=== PATIENT | male | born 1940 | race Caucasian/White ===

== ENCOUNTER 2017-07-23 21:01 | Inpatient (IN) | payer MEDICARE, OTHER ==
[~2017-07-23] VITALS: Ht 172.7 cm; Wt 74.4 kg
[~2017-07-23 21:01] MED LIST: ASPI81TA50 PO; IRON PO; LISI40TA PO; METO-239 PO; MULT1CAP15 PO; NAPR500T4 PO; OMEG-33 PO; PRAV40TA2 PO; TERA2CAP3 PO; VITAMIN B PO
[2017-07-23] MEDS ORDERED: ASPIRIN ENTERIC COATED 81 MG TABLET.DR. PO ONE (21:30)
--- NOTE | 2017-07-23 21:34 | PHYS DOC ---
Past History Past Medical History: CAD, Hypertension, Other Past Surgical History: Coronary Bypass Surgery, Other Alcohol Use: None Drug Use: None Adult General Chief Complaint Chief Complaint: MULTIPLE COMPLAINTS HPI HPI Patient is a 77 year old male who presents with complaint of chest pain and shortness of breath. Patient states that shortly prior to arrival the patient experienced a fall while at home. Patient states that he lost his balance while he was trying to climb stairs and fell onto his rear end. Patient denies falling to his back or hitting the back of his head and did not lose consciousness. Patient not currently on any blood thinners. Patient states that as he attempted to exert himself trying to get back up the steps, he started getting very short of breath and started feeling pressure across his chest. Patient states that the pressure is still present on my evaluation rated his pain as 5 out of 10. Patient has not taken any medications for his symptoms at this time. The patient has extensive history of coronary artery disease and has had multiple stent placements as well as history of cardiac bypass surgery. Patient follows a Dr. Burrell of cardiology. The patient states that he has not had any recent stress test or echocardiogram within the last 1-2 years. Review of Systems Review of Systems Constitutional: Denies fever or chills [] Eyes: Denies change in visual acuity, redness, or eye pain [] HENT: Denies nasal congestion or sore throat [] Respiratory: Shortness of breath[] Cardiovascular: Chest pain, denies edema[] GI: Denies abdominal pain, nausea, vomiting, bloody stools or diarrhea [] : Denies dysuria or hematuria [] Musculoskeletal: Denies back pain or joint pain [] Integument: Denies rash or skin lesions [] Neurologic: Headache, denies focal weakness or sensory changes [] All other systems were reviewed and found to be within normal limits, except as documented in this note. Current Medications Current Medications Current Medications Medications (Trade) Dose Ordered Sig/Pedro Start Time Stop Time Status Last Admin Dose Admin Aspirin (Aspirin Enteric Coated) 81 mg STK-MED ONCE 07/23/17 21:30 07/23/17 21:31 DC Aspirin (Children'S Aspirin) 324 mg 1X ONCE 07/23/17 22:00 07/23/17 22:01 Fentanyl Citrate (Fentanyl 2ml Vial) 50 mcg PRN Q15MIN PRN 07/23/17 21:30 07/24/17 21:29 Nitroglycerin (Nitrostat) 0.4 mg PRN Q5MIN PRN 07/23/17 21:30 07/24/17 21:29 Ondansetron HCl (Zofran) 4 mg 1X ONCE 07/23/17 21:30 07/23/17 21:31 UNV Sodium Chloride 1,000 ml @ 100 mls/hr Q10H 07/23/17 21:24 07/24/17 07:23 UNV Allergies Allergies Allergies Coded Allergies Type Severity Reaction Last Updated Verified No Known Drug Allergies 12/15/15 No Physical Exam Physical Exam Constitutional: Alert, afebrile, appears in mild to moderate discomfort[] HENT: Normocephalic, atraumatic, bilateral external ears normal, oropharynx moist, no oral exudates, nose normal. [] Eyes: PERRLA, EOMI, conjunctiva normal, no discharge. [] Neck: Normal range of motion, no tenderness, supple, no stridor. [] Cardiovascular:Heart rate regular rhythm, no murmur [] Lungs & Thorax: Bilateral breath sounds clear to auscultation [] Abdomen: Bowel sounds normal, soft, no tenderness, no masses, no pulsatile masses. [] Skin: Warm, dry, no erythema, no rash. [] Back: No tenderness, no CVA tenderness. [] Extremities: No tenderness, no cyanosis, no clubbing, ROM intact, no edema. [] Neurologic: Alert and oriented X 3, normal motor function, normal sensory function, no focal deficits noted. [] Current Patient Data Vital Signs Vital Signs Date Time Temp Pulse Resp B/P (MAP) Pulse Ox O2 Delivery O2 Flow Rate FiO2 07/23/17 21:01 98.2 65 26 98 Room Air EKG EKG EKG interpreted by me: Heart rate 64, sinus rhythm, leftward axis, no acute ST/T -wave abnormalities present[] Radiology/Procedures Radiology/Procedures One view AP chest x-ray interpreted by me: Pulmonary vascular congestion, atelectasis versus edema in the bilateral lower lobes, normal cardiac silhouette [] Course & Med Decision Making Course & Med Decision Making Pertinent Labs and Imaging studies reviewed. (See chart for details) The patient was started on nitroglycerin, fentanyl, and Zofran for symptoms with reported improvement. Initial troponin is negative. The patient's HEART score is 6. Patient will require admission to the hospital for rule out of myocardial infarction. I spoke with Dr. Galvan who accepted care patient in hospital. A consult was placed to Dr. Gutierrez to follow with patient in hospital. Dragon Disclaimer Dragon Disclaimer This electronic medical record was generated, in whole or in part, using a voice recognition dictation system. Departure Departure: Impression: Primary Impression: Chest pain Additional Impressions: Coronary artery disease Hypertension Disposition: 09 ADMITTED INPATIENT Admitting Physician: Claudia Galvan Condition: GUARDED Referrals: ASHLEY CASTRO DO (PCP) Problem Qualifiers Primary Impression: Chest pain Chest pain type: unspecified Qualified Codes: R07.9 - Chest pain, unspecified Additional Impressions: Coronary artery disease Coronary Disease-Associated Artery/Lesion type: [place] artery [place] vs. transplanted heart: [place] heart Associated angina: with unstable angina Qualified Codes: I25.110 - Atherosclerotic heart disease of [place] coronary artery with unstable angina pectoris Hypertension Hypertension type: essential hypertension Qualified Codes: I10 - Essential ( primary) hypertension BELEM SORENSON MD Jul 23, 2017 21:34
[2017-07-23 21:36] LABS: BASO % 0 % (0-3); EOS # 0.1 x10^3/uL (0.0-0.7); EOS % 2 % (0-3); HEMATOCRIT 38.6 % (39.0-53.0); HEMOGLOBIN 13.2 g/dL (13.0-17.5); LYMPH # 1.2 x10^3/uL (1.0-4.8); LYMPH % 20 % (24-48); MEAN CORPUSCULAR HEMOGLOBIN 31 pg (25-35); MEAN CORPUSCULAR HGB CONC 34 g/dL (31-37); MEAN CORPUSCULAR VOLUME 89 fL (79-100); MONO # 0.4 x10^3/uL (0.0-1.1); MONO % 8 % (0-9); NEUT # 4.1 x10^3uL (1.8-7.7); NEUT % 70 % (31-73); PLATELET COUNT 130 x10^3/uL (140-400); RED BLOOD COUNT 4.33 x10^6/uL (4.30-5.70); RED CELL DISTRIBUTION WIDTH 13.7 % (11.5-14.5); WHITE BLOOD COUNT 5.9 x10^3/uL (4.0-11.0)
[2017-07-23] MEDS: NITROGLYCERIN SUBLINGUAL 0.4 MG BOTTLE OF 25. SL PRN ×2 (21:38→22:01)
[2017-07-23 21:58] LABS: ALBUMIN 3.6 g/dL (3.4-5.0); CALCIUM 8.8 mg/dL (8.5-10.1); CREATININE 1.3 mg/dL (0.7-1.3); GFR 53.3; MAGNESIUM 1.9 mg/dL (1.8-2.4); POTASSIUM 3.9 mmol/L (3.5-5.1); TOTAL BILIRUBIN 0.6 mg/dL (0.2-1.0); TOTAL PROTEIN 7.3 g/dL (6.4-8.2)
[2017-07-23] MEDS ORDERED: ONDANSETRON PF 4 MG/2 ML VIAL. IV ONE (22:00)
[2017-07-23] MEDS ORDERED: ASPIRIN 81 MG TAB.CHEW PO ONE (22:00)
[2017-07-23] MEDS ORDERED: IV NORMAL SALINE 1,000ML 1,000 ML IV SCH (22:00)
[2017-07-23] MEDS ORDERED: ACETAMINOPHEN 325 MG TABLET PO PRN (22:30)
[2017-07-23] MEDS ORDERED: ONDANSETRON PF 4 MG/2 ML VIAL. IV PRN (22:30)
[2017-07-23 22:32] VITALS: BP 165/98
[2017-07-23 23:43] VITALS: BP 180/68
[2017-07-24] MEDS ORDERED: ANTI-COAG MONITOR BY PHARMACY. MC PRN (01:00)
--- NOTE | 2017-07-24 01:28 | EKG ---
[address] [address] Test Date: 2017-07-23 Test Time: 21:15:04 Pat Name: TYSON BRYAN Department: Room: 123 A Gender: M Police Guard: DORETHA : 1940 Requested By: BELEM SORENSON Order Number: [id number] Reading MD: Sincere Haile MD Measurements Intervals [place] Rate: 64 P: [place]: QRS: 10 QRSD: 90 T: 65 QT: 400 QTc: 412 Interpretive Statements SINUS RHYTHM Electronically Signed On 07-24-2017 10:30:59 BRIQUETTING MACHINE OPERATOR by Sincere Haile MD
[2017-07-24] MEDS: ENOXAPARIN ** NOTE DOSE ** SYRINGE SQ SCH ×3 (01:34→21:39)
[2017-07-24 02:42] VITALS: BP 175/75
[2017-07-24 05:47] VITALS: BP 160/62
[2017-07-24 07:02] LABS: BASO % 0 % (0-3); EOS % 0 % (0-3); HEMATOCRIT 33.6 % (39.0-53.0); HEMOGLOBIN 11.8 g/dL (13.0-17.5); LYMPH # 0.8 x10^3/uL (1.0-4.8); LYMPH % 13 % (24-48); MEAN CORPUSCULAR HEMOGLOBIN 31 pg (25-35); MEAN CORPUSCULAR HGB CONC 35 g/dL (31-37); MEAN CORPUSCULAR VOLUME 89 fL (79-100); MONO # 0.4 x10^3/uL (0.0-1.1); MONO % 7 % (0-9); NEUT # 5.1 x10^3uL (1.8-7.7); NEUT % 80 % (31-73); PLATELET COUNT 110 x10^3/uL (140-400); RED BLOOD COUNT 3.77 x10^6/uL (4.30-5.70); RED CELL DISTRIBUTION WIDTH 13.7 % (11.5-14.5); WHITE BLOOD COUNT 6.4 x10^3/uL (4.0-11.0)
[2017-07-24 07:11] LABS: CALCIUM 8.3 mg/dL (8.5-10.1); CREATININE 1.3 mg/dL (0.7-1.3); GFR 53.3; POTASSIUM 3.7 mmol/L (3.5-5.1)
--- NOTE | 2017-07-24 07:36 | RAD ---
Portable chest, 07/23/2017: History: Chest pain Comparison is made to a study from 12/15/2015. There has been a previous median sternotomy. A coronary artery stent is evident. The heart is at the upper limits of normal in size. There is calcific plaquing of the aorta. The pulmonary vascularity is normal. There is minimal streaky atelectasis or scarring in the right base. No dense pulmonary consolidation is seen. There is no evidence of pleural fluid. IMPRESSION: 1. Borderline cardiomegaly and aortic atherosclerosis. 2. Minimal right basilar atelectasis and/or scarring.
[2017-07-24] MEDS ORDERED: METOPROLOL SUCC 24HR ER 25 MG TAB.ER.24H. PO SCH (09:00)
[2017-07-24] MEDS ORDERED: NAPROXEN 500 MG TABLET PO SCH (09:00)
--- NOTE | 2017-07-24 09:33 | PDOC2 ---
SARA LOPEZ SUPERINTENDENT SERVICE 07/24/17 0933: CONSULT Date of Admission DATE: 07/24/17 TIME: 09:22 Reason for Consult: chest pain Problem List Problems Medical Problems: (1) Chest pain Status: Acute (2) Coronary artery disease Status: Acute (3) Hypertension Status: Acute History of Present Illness Mr Gaxiola is a 77 year old male with history of severe coronary artery disease with CABG and redo CABG. His last cardiac cath was last year and revealed patent stents and vein grafts so he was continued on medical therapy. He reports coming in yesterday and feeling lightheaded "like being drunk" and having difficulty maintaining his balance. He lost balance and fell in the basement. He reports he then became short of breath and had to crawl up the steps. He reports some chest discomfort by the time he go to the top of the stairs. He reports this is the first time he has had symptoms since his cath last year. He reports normally being able to climb the stairs without symptoms and believes he could walk "as far as I need to" without problems. He denies any palpitations or syncope. He denies congestive symptoms. Past Medical History Echo 12/15/15 The left ventricle is normal size. Left ventricle systolic function is normal. The Ejection Fraction is 55-60%. There is borderline to mild concentric left ventricular hypertrophy. There is no significant aortic valvular stenosis. Doppler and Color Flow revealed mild aortic regurgitation. Doppler and Color Flow revealed trace to mild mitral regurgitation. Doppler and Color Flow revealed trace tricuspid regurgitation. The PA pressure was estimated at 20 mmHg. Cardiac Cath 12/17/15 CORONARY ANGIOGRAPHY: LM is small and diffusely diseased. LAD is proximally occluded. The mid and distal vessel is small in size and fills via a patent vein graft. D1 is proximall occluded. The distal vessel fills via a skip graft from the LAD graft and is small in caliber. The distal vessel prior to graft anastomosis has a subtotal occlusion. LCx is proximally occluded. OM1 is ostially occluded and fills via jump graft from the LAD/D1 graft. RCA is a small to moderate sized vessel with a long diffuse 50-60% stenosis ( unchanged from 2 yrs ago). RPDA/RPL fill via a patent vein graft. BYPASS ANGIOGRAPHY: SVG to RPL1/2 is widely patent without anastomotic stenosis. SVG jump graft to LAD, D1 and OM1 is widely patent without anastomotic stenosis. Prior OM1 graft occluded with previously placed stents CHANEY graft is known occluded and not injected. OM1 Conclusion 1. Mildly elevated left ventricular filling pressure. 2. Normal LV systolic function. EF 65% 3. Severe three vessel coronary artery disease. 4. 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 HTN HLD prostate cancer Past Surgical History CABG twice Family History non contributory Social History non smoker, no significant ETOH, no illicit drugs Current Medications Current Medications Aspirin (Children'S Aspirin) 324 mg 1X ONCE PO Last administered on 21:46; Start 07/23/17 at 22:00; Stop 07/23/17 at 22:01; Status DC Nitroglycerin (Nitrostat) 0.4 mg PRN Q5MIN PRN SL CP RATING > 1/10 Last administered on 07/23/17 22:01; Start 07/23/17 at 21:30; Stop 07/24/17 at 21 :29 Fentanyl Citrate (Fentanyl 2ml Vial) 50 mcg PRN Q15MIN PRN IV PAIN GREATER THAN 3/10 Last administered on 07/23/17 21:56; Start 07/23/17 at 21:30; Stop 07/24/17 at 21:29 Sodium Chloride 1,000 ml @ 100 mls/hr Q10H IV Last administered on 07/23/17 21:39; Start 07/23/17 at 22:00; Stop 07/24/17 at 00:52; Status DC Ondansetron HCl (Zofran) 4 mg 1X ONCE IV Last administered on 07/23/17 21:37 ; Start 07/23/17 at 22:00; Stop 07/23/17 at 22:01; Status DC Aspirin (Aspirin Enteric Coated) 81 mg STK-MED ONCE PO ; Start 07/23/17 at 21: 30; Stop 07/23/17 at 21:31; Status DC Ondansetron HCl (Zofran) 4 mg PRN Q4HRS PRN IV NAUSEA/VOMITING; Start at 22:30; Stop 07/24/17 at 22:29 Fentanyl Citrate (Fentanyl 2ml Vial) 50 mcg PRN Q2HR PRN IV SEVERE PAIN; Start 07/23/17 at 22:30; Stop 07/24/17 at 22:29 Acetaminophen (Tylenol) 650 mg PRN Q4HRS PRN PO FEVER; Start 07/23/17 at 22:30 ; Stop 07/24/17 at 22:29 Aspirin (Aspirin Enteric Coated) 81 mg DAILY PO ; Start 07/24/17 at 09:00 Metoprolol Succinate (Toprol Xl) 12.5 mg BID PO ; Start 07/24/17 at 09:00 Naproxen (Naprosyn) 500 mg BID PO ; Start 07/24/17 at 09:00 Lisinopril (Prinivil) 40 mg DAILY PO ; Start 07/24/17 at 09:00 Multivitamins/ Calcium (Thera-M Plus) 1 tab DAILY PO ; Start 07/24/17 at 09:00 Fish Oil (Fish Oil) 2,000 mg DAILY PO ; Start 07/24/17 at 09:00 Atorvastatin Calcium (Lipitor) 40 mg QHS PO ; Start 07/24/17 at 21:00 Terazosin HCl (Hytrin) 2 mg QHS PO ; Start 07/24/17 at 21:00 Ferrous Sulfate (Feosol) 325 mg DAILYWBKFT PO ; Start 07/24/17 at 08:00 Cyanocobalamin (Vitamin B-12) 2,500 mcg DAILY PO ; Start 07/24/17 at 09:00 Enoxaparin Sodium (Lovenox 80mg Syringe) 70 mg Q12HR SQ Last administered on t 01:34; Start 07/24/17 at 01:00 Info (Anti-Coagulation Monitoring By Pharmacy) 1 each PRN DAILY PRN MC SEE COMMENTS; Start 07/24/17 at 01:00 Active Scripts Active Reported Multivitamins (Multivitamin) 1 Each Capsule 1 Each PO DAILY LAST DOSE GIVEN: DATE: TIME: NEXT DOSE DUE: DATE: TIME: [Vitamin B] 2,500 Mg PO DAILY LAST DOSE GIVEN: DATE: TIME: NEXT DOSE DUE: DATE: TIME: [Iron] 65 Mg PO DAILY LAST DOSE GIVEN: DATE: TIME: NEXT DOSE DUE: DATE: TIME: [place] 3 1,000 Mg Softgel ([place]-3 Fatty Acids/Fish Oil) 1 Each Capsule 2 Each PO DAILY LAST DOSE GIVEN: DATE: TIME: NEXT DOSE DUE: DATE: TIME: Aspir-Low (Aspirin) 81 Mg Tablet.dr 1 Tab PO DAILY LAST DOSE GIVEN: DATE: TIME: NEXT DOSE DUE: DATE: TIME: Naproxen 500 Mg Tablet 500 Mg PO BID LAST DOSE GIVEN: DATE: TIME: NEXT DOSE DUE: DATE: TIME: Terazosin Hcl 2 Mg Capsule 2 Mg PO QHS LAST DOSE GIVEN: DATE: TIME: NEXT DOSE DUE: DATE: TIME: Metoprolol Succinate ( Xl ) (Metoprolol Succinate) 25 Mg Tab.er.24h 12.5 Mg PO BID LAST DOSE GIVEN: DATE: TIME: NEXT DOSE DUE: DATE: TIME: Lisinopril 40 Mg Tablet 40 Mg PO DAILY LAST DOSE GIVEN: DATE: TIME: NEXT DOSE DUE: DATE: TIME: Pravastatin Sodium 40 Mg Tablet 80 Mg PO BID LAST DOSE GIVEN: DATE: TIME: NEXT DOSE DUE: DATE: TIME: Allergies: Coded Allergies: No Known Drug Allergies (Unverified , 12/15/15) Review of System as per HPI or negative General: Alert, Oriented X3, Cooperative, No acute distress HEENT: Atraumatic, EOMI Lungs: Clear to auscultation Heart: Regular rate, Normal S1, Normal S2, Other (no gallops, clicks or rubs) Abdomen: Normal bowel sounds, Soft Extremities: No cyanosis, No edema, Normal pulses Neuro: Normal speech, Strength at 5/5 X4 ext Psych/Mental Status: Mental status NL, Mood NL VITALS Vital Signs Date Time Temp Pulse Resp B/P (MAP) Pulse Ox O2 Delivery O2 Flow Rate FiO2 07/24/17 05:47 99.1 64 16 160/62 (94) 93 Room Air 07/24/17 02:42 2.0 Labs Laboratory Tests Test 07/23/17 21:10 07/24/17 00:10 07/24/17 06:17 White Blood Count 5.9 x10^3/uL (4.0-11.0) 6.4 x10^3/uL (4.0-11.0) Red Blood Count 4.33 x10^6/uL (4.30-5.70) 3.77 x10^6/uL (4.30-5.70) Hemoglobin 13.2 g/dL (13.0-17.5) 11.8 g/dL (13.0-17.5) Hematocrit 38.6 % (39.0-53.0) 33.6 % (39.0-53.0) Mean Corpuscular Volume 89 fL (79-100) 89 fL (79-100) Mean Corpuscular Hemoglobin 31 pg (25-35) 31 pg (25-35) Mean Corpuscular Hemoglobin Concent 34 g/dL (31-37) 35 g/dL (31-37) Red Cell Distribution Width 13.7 % (11.5-14.5) 13.7 % (11.5-14.5) Platelet Count 130 x10^3/uL (140-400) 110 x10^3/uL (140-400) Neutrophils (%) (Auto) 70 % (31-73) 80 % (31-73) Lymphocytes (%) (Auto) 20 % (24-48) 13 % (24-48) Monocytes (%) (Auto) 8 % (0-9) 7 % (0-9) Eosinophils (%) (Auto) 2 % (0-3) 0 % (0-3) Basophils (%) (Auto) 0 % (0-3) 0 % (0-3) Neutrophils # (Auto) 4.1 x10^3uL (1.8-7.7) 5.1 x10^3uL (1.8-7.7) Lymphocytes # (Auto) 1.2 x10^3/uL (1.0-4.8) 0.8 x10^3/uL (1.0-4.8) Monocytes # (Auto) 0.4 x10^3/uL (0.0-1.1) 0.4 x10^3/uL (0.0-1.1) Eosinophils # (Auto) 0.1 x10^3/uL (0.0-0.7) 0.0 x10^3/uL (0.0-0.7) Basophils # (Auto) 0.0 x10^3/uL (0.0-0.2) 0.0 x10^3/uL (0.0-0.2) Sodium Level 139 mmol/L (136-145) 138 mmol/L (136-145) Potassium Level 3.9 mmol/L (3.5-5.1) 3.7 mmol/L (3.5-5.1) Chloride Level 103 mmol/L (98-107) 104 mmol/L (98-107) Carbon Dioxide Level 28 mmol/L (21-32) 28 mmol/L (21-32) Anion Gap 8 (6-14) 6 (6-14) Blood Urea Nitrogen 15 mg/dL (8-26) 14 mg/dL (8-26) Creatinine 1.3 mg/dL (0.7-1.3) 1.3 mg/dL (0.7-1.3) Estimated GFR (Cockcroft-Gault) 53.3 53.3 BUN/Creatinine Ratio 12 (6-20) Glucose Level 104 mg/dL (70-99) 102 mg/dL (70-99) Calcium Level 8.8 mg/dL (8.5-10.1) 8.3 mg/dL (8.5-10.1) Magnesium Level 1.9 mg/dL (1.8-2.4) Total Bilirubin 0.6 mg/dL (0.2-1.0) Aspartate Amino Transf (AST/SGOT) 28 U/L (15-37) Alanine Aminotransferase (ALT/SGPT) 31 U/L (16-63) Alkaline Phosphatase 98 U/L (46-116) Creatine Kinase 226 U/L (39-308) Creatine Kinase MB (Mass) 3.0 ng/mL (0.0-3.6) Creatine Kinase MB Relative Index 1.3 % (0-4) Troponin I Quantitative < 0.017 ng/mL (0-0.055) 0.059 ng/mL (0-0.055) 0.066 ng/mL (0-0.055) OS-Rcj-V-Type Natriuretic Peptide 1262 pg/mL (0-449) Total Protein 7.3 g/dL (6.4-8.2) Albumin 3.6 g/dL (3.4-5.0) Albumin/Globulin Ratio 1.0 (1.0-1.7) Images EKG - sinus rhythm, no acute ischemic changes CXR IMPRESSION: 1. Borderline cardiomegaly and aortic atherosclerosis. 2. Minimal right basilar atelectasis and/or scarring. Assessment/Plan 1. Chest pain, exertional 2. mildly elevated troponin 3. Severe 3 vessel CAD with redo bypass 4. hypertension 5. hyperlipidemia Check echo, start Ranexa, continue aspirin, statin and resume other home medications. Check lipids. Problems: RIZWANA KELLEY MD 07/24/17 1502: CONSULT Allergies: Coded Allergies: No Known Drug Allergies (Unverified , 12/15/15) Assessment/Plan Pt. seen and examined. Agree with above BRASS MOLDER note. 77 y.o male with known CAD presenting with near syncope. Mild trop elevation, no prior symptoms of angina. Check echo, carotid doppler and stop toprol. Likely event monitor prior to DC. Trend trop until it downtrends. Problems: SARA LOPEZ APRN Jul 24, 2017 09:33 RIZWANA KELLEY MD Jul 24, 2017 15:02
--- NOTE | 2017-07-24 09:41 | EKG ---
[address] [address] Test Date: 2017-07-24 Test Time: 08:00:50 Pat Name: TYSON BRYAN Department: Room: 123 A Gender: M Studio Engineer: : 1940 Requested By: SAIRA SINGH Order Number: [id number] Reading MD: Sincere Haile MD Measurements Intervals [place] Rate: 62 P: 26 RI: 174 QRS: -12 QRSD: 90 T: 73 QT: 430 QTc: 439 Interpretive Statements SINUS RHYTHM Electronically Signed On 07-24-2017 10:32:47 POLYSOMNOGRAPHY TECHNICIAN by Sincere Haile MD
[2017-07-24] MEDS ORDERED: RANOLAZINE 500 MG TAB.ER.12H PO SCH (10:30)
[2017-07-24] MEDS: CYANOCOBALAMIN (VITAMIN B-12) 1,000 MCG TABLET. PO SCH (10:32)
[2017-07-24] MEDS: OMEGA-3 FATTY ACIDS/FISH OIL 1,000 MG CAPSULE. PO SCH (10:33)
[2017-07-24] MEDS: FERROUS SULFATE 325 MG TABLET. PO SCH (10:34)
[2017-07-24] MEDS: MULTIVITAMIN with MINERAL TABLET. PO SCH (10:34)
[2017-07-24] MEDS: ASPIRIN ENTERIC COATED 81 MG TABLET.DR. PO SCH (10:34)
[2017-07-24] MEDS: LISINOPRIL 20 MG TABLET PO SCH (10:36)
[2017-07-24 10:46] VITALS: BP 142/56
[2017-07-24 14:40] VITALS: BP 148/82
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
[2017-07-24 19:33] VITALS: BP 155/66
[2017-07-24] MEDS ORDERED: TERAZOSIN 1 MG CAPSULE. PO SCH (21:00)
[2017-07-24] MEDS ORDERED: ATORVASTATIN CALCIUM 20 MG TABLET PO SCH (21:00)
[2017-07-24 23:23] VITALS: BP 125/50
[2017-07-25 06:22] VITALS: BP 143/58
--- NOTE | 2017-07-25 07:59 | RAD ---
APPROVED REPORT Indications Syncope Hernandez scale images of the bilateral common carotid, internal and external carotid vessels do not revea l any evidence of significant obstructive plaque. The common carotid velocities bilaterally are decre ased likely due to suboptimal angled inclination and technical difficulty. Nonetheless, the internal carotid artery velocities suggestive 0 to less than 50% stenosis. The distal internal carotid artery appears to be tortuous and likely leading to elevated ICA to CCA ratios. No obvious high-grade diseas e is identified. Doppler Spectral Velocity Analysis Right Left mCCA 38/ cm/smCCA 59/ cm/s ECA 91/ cm/sECA 65/ cm/s pICA 55/9 cm/spICA 72/6 cm/s Anabel 63/12 cm/smICA 74/7 cm/s dICA 111/18 cm/sdICA 66/13 cm/s ICA/CCA 2.92ICA/CCA 1.30 Critical Notification Critical Value: No <Conclusion> No evidence of high-grade carotid arterial stenosis. Antegrade vertebral velocities.
[2017-07-25] MEDS: OMEGA-3 FATTY ACIDS/FISH OIL 1,000 MG CAPSULE. PO SCH (08:37)
[2017-07-25] MEDS: CYANOCOBALAMIN (VITAMIN B-12) 1,000 MCG TABLET. PO SCH (08:37)
[2017-07-25] MEDS: LISINOPRIL 20 MG TABLET PO SCH (08:37)
[2017-07-25] MEDS: MULTIVITAMIN with MINERAL TABLET. PO SCH (08:38)
[2017-07-25] MEDS: FERROUS SULFATE 325 MG TABLET. PO SCH (08:38)
[2017-07-25] MEDS: ASPIRIN ENTERIC COATED 81 MG TABLET.DR. PO SCH (08:38)
[2017-07-25] MEDS: ENOXAPARIN ** NOTE DOSE ** SYRINGE SQ SCH (08:42)
--- NOTE | 2017-07-25 10:11 | PDOC ---
PROGRESS NOTES Diagnosis Problem Problems Medical Problems: (1) Chest pain Status: Acute (2) Coronary artery disease Status: Acute (3) Hypertension Status: Acute Assessment Problems Medical Problems: (1) Chest pain Status: Acute (2) Coronary artery disease Status: Acute (3) Hypertension Status: Acute 1. Chest pain, exertional - resolved. 2. mildly elevated troponin - peak 0.066. 3. 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 Off beta kian due to bradycardia. 4. bradycardia - event monitor outpatient 5. hypertension - controlled 6. hyperlipidemia - controlled on current therapy. Problems: Subjective no chest pain, no dyspnea, "ready to go home" Objective Vital Signs Date Time Temp Pulse Resp B/P (MAP) Pulse Ox O2 Delivery O2 Flow Rate FiO2 07/25/17 08:37 52 143/58 07/25/17 06:22 97.9 16 93 Room Air 07/24/17 19:33 94.0 Intake and Output 07/25/17 07:00 Intake Total 120 ml Output Total 100 ml Balance 20 ml Intake Oral 120 ml Output Urine Total 100 ml # Voids 1 Abdomen: Normal bowel sounds, Soft, No tenderness Heart: Regular rate, Normal S1, Normal S2 Extremities: No cyanosis, Normal pulses General: Alert, Oriented X3, Cooperative Lungs: Clear to auscultation, Normal air movement Neuro: Normal speech, Strength at 5/5 X4 ext Psych/Mental Status: Mental status NL, Mood NL Review of Relevant I have reviewed the following items adria (where applicable) has been applied. Labs Laboratory Tests Test 07/23/17 21:10 07/24/17 00:10 07/24/17 06:17 07/24/17 15:25 White Blood Count 5.9 x10^3/uL (4.0-11.0) 6.4 x10^3/uL (4.0-11.0) Red Blood Count 4.33 x10^6/uL (4.30-5.70) 3.77 x10^6/uL (4.30-5.70) Hemoglobin 13.2 g/dL (13.0-17.5) 11.8 g/dL (13.0-17.5) Hematocrit 38.6 % (39.0-53.0) 33.6 % (39.0-53.0) Mean Corpuscular Volume 89 fL (79-100) 89 fL (79-100) Mean Corpuscular Hemoglobin 31 pg (25-35) 31 pg (25-35) Mean Corpuscular Hemoglobin Concent 34 g/dL (31-37) 35 g/dL (31-37) Red Cell Distribution Width 13.7 % (11.5-14.5) 13.7 % (11.5-14.5) Platelet Count 130 x10^3/uL (140-400) 110 x10^3/uL (140-400) Neutrophils (%) (Auto) 70 % (31-73) 80 % (31-73) Lymphocytes (%) (Auto) 20 % (24-48) 13 % (24-48) Monocytes (%) (Auto) 8 % (0-9) 7 % (0-9) Eosinophils (%) (Auto) 2 % (0-3) 0 % (0-3) Basophils (%) (Auto) 0 % (0-3) 0 % (0-3) Neutrophils # (Auto) 4.1 x10^3uL (1.8-7.7) 5.1 x10^3uL (1.8-7.7) Lymphocytes # (Auto) 1.2 x10^3/uL (1.0-4.8) 0.8 x10^3/uL (1.0-4.8) Monocytes # (Auto) 0.4 x10^3/uL (0.0-1.1) 0.4 x10^3/uL (0.0-1.1) Eosinophils # (Auto) 0.1 x10^3/uL (0.0-0.7) 0.0 x10^3/uL (0.0-0.7) Basophils # (Auto) 0.0 x10^3/uL (0.0-0.2) 0.0 x10^3/uL (0.0-0.2) Sodium Level 139 mmol/L (136-145) 138 mmol/L (136-145) Potassium Level 3.9 mmol/L (3.5-5.1) 3.7 mmol/L (3.5-5.1) Chloride Level 103 mmol/L (98-107) 104 mmol/L (98-107) Carbon Dioxide Level 28 mmol/L (21-32) 28 mmol/L (21-32) Anion Gap 8 (6-14) 6 (6-14) Blood Urea Nitrogen 15 mg/dL (8-26) 14 mg/dL (8-26) Creatinine 1.3 mg/dL (0.7-1.3) 1.3 mg/dL (0.7-1.3) Estimated GFR (Cockcroft-Gault) 53.3 53.3 BUN/Creatinine Ratio 12 (6-20) Glucose Level 104 mg/dL (70-99) 102 mg/dL (70-99) Calcium Level 8.8 mg/dL (8.5-10.1) 8.3 mg/dL (8.5-10.1) Magnesium Level 1.9 mg/dL (1.8-2.4) Total Bilirubin 0.6 mg/dL (0.2-1.0) Aspartate Amino Transf (AST/SGOT) 28 U/L (15-37) Alanine Aminotransferase (ALT/SGPT) 31 U/L (16-63) Alkaline Phosphatase 98 U/L (46-116) Creatine Kinase 226 U/L (39-308) Creatine Kinase MB (Mass) 3.0 ng/mL (0.0-3.6) Creatine Kinase MB Relative Index 1.3 % (0-4) Troponin I Quantitative < 0.017 ng/mL (0-0.055) 0.059 ng/mL (0-0.055) 0.066 ng/mL (0-0.055) 0.035 ng/mL (0-0.055) CV-Yyo-L-Type Natriuretic Peptide 1262 pg/mL (0-449) Total Protein 7.3 g/dL (6.4-8.2) Albumin 3.6 g/dL (3.4-5.0) Albumin/Globulin Ratio 1.0 (1.0-1.7) Triglycerides Level 35 mg/dL (0-150) Cholesterol Level 123 mg/dL (0-200) LDL Cholesterol, Calculated 70 mg/dL (0-100) VLDL Cholesterol, Calculated 7 mg/dL (0-40) Non-HDL Cholesterol Calculated 77 mg/dL (0-129) HDL Cholesterol 46 mg/dL (40-60) Cholesterol/HDL Ratio 2.0 Medications Current Medications Aspirin (Children'S Aspirin) 324 mg 1X ONCE PO Last administered on 21:46; Start 07/23/17 at 22:00; Stop 07/23/17 at 22:01; Status DC Nitroglycerin (Nitrostat) 0.4 mg PRN Q5MIN PRN SL CP RATING > 1/10 Last administered on 07/23/17 22:01; Start 07/23/17 at 21:30; Stop 07/24/17 at 21 :29; Status DC Fentanyl Citrate (Fentanyl 2ml Vial) 50 mcg PRN Q15MIN PRN IV PAIN GREATER THAN 3/10 Last administered on 07/23/17 21:56; Start 07/23/17 at 21:30; Stop 07/24/17 at 21:29; Status DC Sodium Chloride 1,000 ml @ 100 mls/hr Q10H IV Last administered on 07/23/17 21:39; Start 07/23/17 at 22:00; Stop 07/24/17 at 00:52; Status DC Ondansetron HCl (Zofran) 4 mg 1X ONCE IV Last administered on 07/23/17 21:37 ; Start 07/23/17 at 22:00; Stop 07/23/17 at 22:01; Status DC Aspirin (Aspirin Enteric Coated) 81 mg STK-MED ONCE PO ; Start 07/23/17 at 21: 30; Stop 07/23/17 at 21:31; Status DC Ondansetron HCl (Zofran) 4 mg PRN Q4HRS PRN IV NAUSEA/VOMITING; Start at 22:30; Stop 07/24/17 at 22:29; Status DC Fentanyl Citrate (Fentanyl 2ml Vial) 50 mcg PRN Q2HR PRN IV SEVERE PAIN; Start 07/23/17 at 22:30; Stop 07/24/17 at 22:29; Status DC Acetaminophen (Tylenol) 650 mg PRN Q4HRS PRN PO FEVER; Start 07/23/17 at 22:30 ; Stop 07/24/17 at 22:29; Status DC Aspirin (Aspirin Enteric Coated) 81 mg DAILY PO Last administered on 08:38; Start 07/24/17 at 09:00 Metoprolol Succinate (Toprol Xl) 12.5 mg BID PO Last administered on 10:36; Start 07/24/17 at 09:00; Stop 07/24/17 at 15:01; Status DC Naproxen (Naprosyn) 500 mg BID PO Last administered on 07/24/17 10:34; Start 07/24/17 at 09:00; Stop 07/24/17 at 13:55; Status DC Lisinopril (Prinivil) 40 mg DAILY PO Last administered on 07/25/17 08:37; Start 07/24/17 at 09:00 Multivitamins/ Calcium (Thera-M Plus) 1 tab DAILY PO Last administered on 07/25 08:38; Start 07/24/17 at 09:00 Fish Oil (Fish Oil) 2,000 mg DAILY PO Last administered on 07/25/17 08:37; Start 07/24/17 at 09:00 Atorvastatin Calcium (Lipitor) 40 mg QHS PO Last administered on 07/24/17 21: 38; Start 07/24/17 at 21:00 Terazosin HCl (Hytrin) 2 mg QHS PO Last administered on 07/24/17 21:38; Start 07/24/17 at 21:00 Ferrous Sulfate (Feosol) 325 mg DAILYWBKFT PO Last administered on 07/25/17 08:38; Start 07/24/17 at 08:00 Cyanocobalamin (Vitamin B-12) 2,500 mcg DAILY PO Last administered on 08:37; Start 07/24/17 at 09:00 Enoxaparin Sodium (Lovenox 80mg Syringe) 70 mg Q12HR SQ Last administered on 08:42; Start 07/24/17 at 01:00 Info (Anti-Coagulation Monitoring By Pharmacy) 1 each PRN DAILY PRN MC SEE COMMENTS; Start 07/24/17 at 01:00 Ranolazine (Ranexa) 500 mg BID PO Last administered on 07/24/17 10:36; Start 07/24/17 at 10:30; Stop 07/24/17 at 15:00; Status DC Active Scripts Active Reported Multivitamins (Multivitamin) 1 Each Capsule 1 Each PO DAILY LAST DOSE GIVEN: DATE: TIME: NEXT DOSE DUE: DATE: TIME: [Vitamin B] 2,500 Mg PO DAILY LAST DOSE GIVEN: DATE: TIME: NEXT DOSE DUE: DATE: TIME: [Iron] 65 Mg PO DAILY LAST DOSE GIVEN: DATE: TIME: NEXT DOSE DUE: DATE: TIME: [place] 3 1,000 Mg Softgel ([place]-3 Fatty Acids/Fish Oil) 1 Each Capsule 2 Each PO DAILY LAST DOSE GIVEN: DATE: TIME: NEXT DOSE DUE: DATE: TIME: Aspir-Low (Aspirin) 81 Mg Tablet.dr 1 Tab PO DAILY LAST DOSE GIVEN: DATE: TIME: NEXT DOSE DUE: DATE: TIME: Naproxen 500 Mg Tablet 500 Mg PO BID LAST DOSE GIVEN: DATE: TIME: NEXT DOSE DUE: DATE: TIME: Terazosin Hcl 2 Mg Capsule 2 Mg PO QHS LAST DOSE GIVEN: DATE: TIME: NEXT DOSE DUE: DATE: TIME: Metoprolol Succinate ( Xl ) (Metoprolol Succinate) 25 Mg Tab.er.24h 12.5 Mg PO BID LAST DOSE GIVEN: DATE: TIME: NEXT DOSE DUE: DATE: TIME: Lisinopril 40 Mg Tablet 40 Mg PO DAILY LAST DOSE GIVEN: DATE: TIME: NEXT DOSE DUE: DATE: TIME: Pravastatin Sodium 40 Mg Tablet 80 Mg PO BID LAST DOSE GIVEN: DATE: TIME: NEXT DOSE DUE: DATE: TIME: Vitals/I & O Vital Sign - Last 24 Hours 07/24/17 07/24/17 07/24/17 07/24/17 10:36 10:36 10:36 10:46 Temp 97.6 Pulse 61 61 61 60 Resp 24 B/P (MAP) 142/56 142/56 142/56 142/56 (84) Pulse Ox 92 O2 Delivery Room Air 07/24/17 07/24/17 07/24/17 07/24/17 14:40 19:30 19:33 21:38 Temp 97.9 98.2 Pulse 64 50 47 Resp 20 18 B/P (MAP) 148/82 (104) 155/66 (95) 155/66 Pulse Ox 96 94 O2 Delivery Room Air Room Air Nasal Cannula O2 Flow Rate 94.0 07/24/17 07/25/17 07/25/17 23:23 06:22 08:37 Temp 97.7 97.9 Pulse 48 52 52 Resp 20 16 B/P (MAP) 125/50 (75) 143/58 (86) 143/58 Pulse Ox 92 93 O2 Delivery Room Air Room Air Intake and Output 07/24/17 07/24/17 07/25/17 15:00 23:00 07:00 Intake Total 120 ml 0 ml Output Total 100 ml Balance 20 ml 0 ml SARA LOPEZ APRN Jul 25, 2017 10:10
[2017-07-25 10:32] VITALS: BP 131/61
--- NOTE | 2017-07-25 10:56 | PDOC3 ---
Discharge Summary Visit Information Date of Admission: Jul 23, 2017 Date of Discharge: Jul 25, 2017 Final Diagnosis Problems Medical Problems: (1) Chest pain Status: Acute (2) Coronary artery disease Status: Acute (3) Hypertension Status: Acute 1. Chest pain, exertional - resolved. 2. mildly elevated troponin - peak 0.066. 3. 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 Off beta kian due to bradycardia. 4. hypertension 5. hyperlipidemia Problems: Brief Hospital Course Allergies Allergies Coded Allergies Type Severity Reaction Last Updated Verified No Known Drug Allergies 12/15/15 No Vital Signs Vital Signs Date Time Temp Pulse Resp B/P (MAP) Pulse Ox O2 Delivery O2 Flow Rate FiO2 07/25/17 10:32 98.0 65 20 131/61 (84) 95 Room Air 07/24/17 19:33 94.0 Lab Results Laboratory Tests Test 07/23/17 21:10 07/24/17 00:10 07/24/17 06:17 07/24/17 15:25 White Blood Count 5.9 x10^3/uL (4.0-11.0) 6.4 x10^3/uL (4.0-11.0) Red Blood Count 4.33 x10^6/uL (4.30-5.70) 3.77 x10^6/uL (4.30-5.70) Hemoglobin 13.2 g/dL (13.0-17.5) 11.8 g/dL (13.0-17.5) Hematocrit 38.6 % (39.0-53.0) 33.6 % (39.0-53.0) Mean Corpuscular Volume 89 fL (79-100) 89 fL (79-100) Mean Corpuscular Hemoglobin 31 pg (25-35) 31 pg (25-35) Mean Corpuscular Hemoglobin Concent 34 g/dL (31-37) 35 g/dL (31-37) Red Cell Distribution Width 13.7 % (11.5-14.5) 13.7 % (11.5-14.5) Platelet Count 130 x10^3/uL (140-400) 110 x10^3/uL (140-400) Neutrophils (%) (Auto) 70 % (31-73) 80 % (31-73) Lymphocytes (%) (Auto) 20 % (24-48) 13 % (24-48) Monocytes (%) (Auto) 8 % (0-9) 7 % (0-9) Eosinophils (%) (Auto) 2 % (0-3) 0 % (0-3) Basophils (%) (Auto) 0 % (0-3) 0 % (0-3) Neutrophils # (Auto) 4.1 x10^3uL (1.8-7.7) 5.1 x10^3uL (1.8-7.7) Lymphocytes # (Auto) 1.2 x10^3/uL (1.0-4.8) 0.8 x10^3/uL (1.0-4.8) Monocytes # (Auto) 0.4 x10^3/uL (0.0-1.1) 0.4 x10^3/uL (0.0-1.1) Eosinophils # (Auto) 0.1 x10^3/uL (0.0-0.7) 0.0 x10^3/uL (0.0-0.7) Basophils # (Auto) 0.0 x10^3/uL (0.0-0.2) 0.0 x10^3/uL (0.0-0.2) Sodium Level 139 mmol/L (136-145) 138 mmol/L (136-145) Potassium Level 3.9 mmol/L (3.5-5.1) 3.7 mmol/L (3.5-5.1) Chloride Level 103 mmol/L (98-107) 104 mmol/L (98-107) Carbon Dioxide Level 28 mmol/L (21-32) 28 mmol/L (21-32) Anion Gap 8 (6-14) 6 (6-14) Blood Urea Nitrogen 15 mg/dL (8-26) 14 mg/dL (8-26) Creatinine 1.3 mg/dL (0.7-1.3) 1.3 mg/dL (0.7-1.3) Estimated GFR (Cockcroft-Gault) 53.3 53.3 BUN/Creatinine Ratio 12 (6-20) Glucose Level 104 mg/dL (70-99) 102 mg/dL (70-99) Calcium Level 8.8 mg/dL (8.5-10.1) 8.3 mg/dL (8.5-10.1) Magnesium Level 1.9 mg/dL (1.8-2.4) Total Bilirubin 0.6 mg/dL (0.2-1.0) Aspartate Amino Transf (AST/SGOT) 28 U/L (15-37) Alanine Aminotransferase (ALT/SGPT) 31 U/L (16-63) Alkaline Phosphatase 98 U/L (46-116) Creatine Kinase 226 U/L (39-308) Creatine Kinase MB (Mass) 3.0 ng/mL (0.0-3.6) Creatine Kinase MB Relative Index 1.3 % (0-4) Troponin I Quantitative < 0.017 ng/mL (0-0.055) 0.059 ng/mL (0-0.055) 0.066 ng/mL (0-0.055) 0.035 ng/mL (0-0.055) [id number]-Jcj-T-Type Natriuretic Peptide 1262 pg/mL (0-449) Total Protein 7.3 g/dL (6.4-8.2) Albumin 3.6 g/dL (3.4-5.0) Albumin/Globulin Ratio 1.0 (1.0-1.7) Triglycerides Level 35 mg/dL (0-150) Cholesterol Level 123 mg/dL (0-200) LDL Cholesterol, Calculated 70 mg/dL (0-100) VLDL Cholesterol, Calculated 7 mg/dL (0-40) Non-HDL Cholesterol Calculated 77 mg/dL (0-129) HDL Cholesterol 46 mg/dL (40-60) Cholesterol/HDL Ratio 2.0 Brief Hospital Course Mr. Gaxiola is a 77 old [sex] who presented with chest pain. OK was ruled out. He had an uneventful hospitalization. His beta kian was discontinued due to bradycardia. He was seen by PT and OT and deemed independent. Discharge Information Condition at Discharge: Improved Disposition/Orders: D/C to Home Dischare Medications Current Medications Aspirin (Children'S Aspirin) 324 mg 1X ONCE PO Last administered on t 21:46; Start 07/23/17 at 22:00; Stop 07/23/17 at 22:01; Status DC Nitroglycerin (Nitrostat) 0.4 mg PRN Q5MIN PRN SL CP RATING > 1/10 Last administered on 07/23/17 22:01; Start 07/23/17 at 21:30; Stop 07/24/17 at 21 :29; Status DC Fentanyl Citrate (Fentanyl 2ml Vial) 50 mcg PRN Q15MIN PRN IV PAIN GREATER THAN 3/10 Last administered on 07/23/17 21:56; Start 07/23/17 at 21:30; Stop 07/24/17 at 21:29; Status DC Sodium Chloride 1,000 ml @ 100 mls/hr Q10H IV Last administered on 07/23/17 21:39; Start 07/23/17 at 22:00; Stop 07/24/17 at 00:52; Status DC Ondansetron HCl (Zofran) 4 mg 1X ONCE IV Last administered on 07/23/17 21:37 ; Start 07/23/17 at 22:00; Stop 07/23/17 at 22:01; Status DC Aspirin (Aspirin Enteric Coated) 81 mg STK-MED ONCE PO ; Start 07/23/17 at 21: 30; Stop 07/23/17 at 21:31; Status DC Ondansetron HCl (Zofran) 4 mg PRN Q4HRS PRN IV NAUSEA/VOMITING; Start at 22:30; Stop 07/24/17 at 22:29; Status DC Fentanyl Citrate (Fentanyl 2ml Vial) 50 mcg PRN Q2HR PRN IV SEVERE PAIN; Start 07/23/17 at 22:30; Stop 07/24/17 at 22:29; Status DC Acetaminophen (Tylenol) 650 mg PRN Q4HRS PRN PO FEVER; Start 07/23/17 at 22:30 ; Stop 07/24/17 at 22:29; Status DC Aspirin (Aspirin Enteric Coated) 81 mg DAILY PO Last administered on 08:38; Start 07/24/17 at 09:00 Metoprolol Succinate (Toprol Xl) 12.5 mg BID PO Last administered on 10:36; Start 07/24/17 at 09:00; Stop 07/24/17 at 15:01; Status DC Naproxen (Naprosyn) 500 mg BID PO Last administered on 07/24/17 10:34; Start 07/24/17 at 09:00; Stop 07/24/17 at 13:55; Status DC Lisinopril (Prinivil) 40 mg DAILY PO Last administered on 07/25/17 08:37; Start 07/24/17 at 09:00 Multivitamins/ Calcium (Thera-M Plus) 1 tab DAILY PO Last administered on 07/25 08:38; Start 07/24/17 at 09:00 Fish Oil (Fish Oil) 2,000 mg DAILY PO Last administered on 07/25/17 08:37; Start 07/24/17 at 09:00 Atorvastatin Calcium (Lipitor) 40 mg QHS PO Last administered on 07/24/17 21: 38; Start 07/24/17 at 21:00 Terazosin HCl (Hytrin) 2 mg QHS PO Last administered on 07/24/17 21:38; Start 07/24/17 at 21:00 Ferrous Sulfate (Feosol) 325 mg DAILYWBKFT PO Last administered on 07/25/17 08:38; Start 07/24/17 at 08:00 Cyanocobalamin (Vitamin B-12) 2,500 mcg DAILY PO Last administered on 08:37; Start 07/24/17 at 09:00 Enoxaparin Sodium (Lovenox 80mg Syringe) 70 mg Q12HR SQ Last administered on 08:42; Start 07/24/17 at 01:00 Info (Anti-Coagulation Monitoring By Pharmacy) 1 each PRN DAILY PRN MC SEE COMMENTS; Start 07/24/17 at 01:00 Ranolazine (Ranexa) 500 mg BID PO Last administered on 07/24/17 10:36; Start 07/24/17 at 10:30; Stop 07/24/17 at 15:00; Status DC Active Scripts Active Reported Multivitamins (Multivitamin) 1 Each Capsule 1 Each PO DAILY LAST DOSE GIVEN: DATE: TIME: NEXT DOSE DUE: DATE: TIME: [Vitamin B] 2,500 Mg PO DAILY LAST DOSE GIVEN: DATE: TIME: NEXT DOSE DUE: DATE: TIME: [Iron] 65 Mg PO DAILY LAST DOSE GIVEN: DATE: TIME: NEXT DOSE DUE: DATE: TIME: [place] 3 1,000 Mg Softgel ([place]-3 Fatty Acids/Fish Oil) 1 Each Capsule 2 Each PO DAILY LAST DOSE GIVEN: DATE: TIME: NEXT DOSE DUE: DATE: TIME: Aspir-Low (Aspirin) 81 Mg Tablet.dr 1 Tab PO DAILY LAST DOSE GIVEN: DATE: TIME: NEXT DOSE DUE: DATE: TIME: Naproxen 500 Mg Tablet 500 Mg PO BID LAST DOSE GIVEN: DATE: TIME: NEXT DOSE DUE: DATE: TIME: Terazosin Hcl 2 Mg Capsule 2 Mg PO QHS LAST DOSE GIVEN: DATE: TIME: NEXT DOSE DUE: DATE: TIME: Metoprolol Succinate ( Xl ) (Metoprolol Succinate) 25 Mg Tab.er.24h 12.5 Mg PO BID LAST DOSE GIVEN: DATE: TIME: NEXT DOSE DUE: DATE: TIME: Lisinopril 40 Mg Tablet 40 Mg PO DAILY LAST DOSE GIVEN: DATE: TIME: NEXT DOSE DUE: DATE: TIME: Pravastatin Sodium 40 Mg Tablet 80 Mg PO BID LAST DOSE GIVEN: DATE: TIME: NEXT DOSE DUE: DATE: TIME: Patient Instructions Patient Instuctions Discharge to home.Meds -see SAIRA GASTON DO Jul 25, 2017 10:56
--- NOTE | 2017-07-25 12:16 | CARD ---
APPROVED REPORT EXAM: Two-dimensional and M-mode echocardiogram with Doppler and color Doppler. Other Information Quality : Average Rhythm : NSR INDICATION Chest Pain 2D DIMENSIONS RVDd3.6 (2.9-3.5cm)Left Atrium(2D)4.0 (1.6-4.0cm) IVSd1.4 (0.7-1.1cm)Aortic Root(2D)3.6 (2.0-3.7cm) LVDd4.8 (3.9-5.9cm)LVOT Diameter2.6 (1.8-2.4cm) PWd1.4 (0.7-1.1cm)LVDs3.6 (2.5-4.0cm) FS (%) 25.4 %SV54.3 ml LVEF(%)50.0 (>50%) Aortic Valve AoV Peak Fermín.129.3cm/sAoV VTI28.8cm AO Peak GR.6.7mmHgLVOT Peak [place].115.4cm/s LVOT VTI 24.61cmAO Mean GR.4mmHg BANDAR (VMAX)4.73nu2FUF (VTI)4.56cm2 AI P 1/2 Cbhe980qw Mitral Valve MV E Pjccdhbe02.8cm/sMV DECEL [id number] MV A Tmqcwzgj38.6cm/sMV OND22bu E/A Ratio1.2MV A Qhkztcmz847du MVA (PHT)3.49cm2 Tricuspid Valve TR P. Xxhkgrhi887yc/sRAP [id number] TR Peak Gr.87bkGoECJN50ctDo LEFT VENTRICLE The left ventricle is normal size. There is mild concentric left ventricular hypertrophy. Left ventri jessica systolic function is normal. The Ejection Fraction is 50-55%. There is normal LV segmental wall m otion. Septal motion consistent with post-operative state. The left ventricular diastolic function an d filling is normal for age. There is no ventricular septal defect visualized. RIGHT VENTRICLE The right ventricle is normal size. The right ventricular systolic function is normal. ATRIA The left atrium size is normal. The right atrium size is normal. The interatrial septum is intact wit h no evidence for an atrial septal defect or patent foramen ovale as noted on 2-D or Doppler imaging. AORTIC VALVE The aortic valve is mildly calcified. The aortic valve is trileaflet. Doppler and Color Flow revealed mild aortic regurgitation. There is no significant aortic valvular stenosis. MITRAL VALVE The mitral valve is normal in structure and function. There is no mitral valve stenosis. Doppler and Color Flow revealed no mitral valve regurgitation noted. TRICUSPID VALVE The tricuspid valve is normal in structure. Doppler and Color Flow revealed trace to mild tricuspid r egurgitation. The PA pressure was estimated at 26 mmHg. There is no tricuspid valve stenosis. PULMONIC VALVE The pulmonic valve is not well visualized. Doppler and Color Flow revealed trace pulmonic valvular re gurgitation. There is no pulmonic valvular stenosis. GREAT VESSELS The aortic root is normal in size. Pulmonary veins not recorded. The IVC is normal in size and collap ses >50% with inspiration. PERICARDIAL EFFUSION There is no evidence of significant pericardial effusion. Critical Notification Critical Value: No <Conclusion> Left ventricle systolic function is normal. The Ejection Fraction is 50-55%. There is normal LV segmental wall motion. Septal motion consistent with post-operative state. Doppler and Color Flow revealed mild aortic regurgitation.
== END 2017-07-25 13:00 | disposition home or self-care (01) | DRG 313 ==
LOC: ER 21:01 → 1 SOUTH 21:28
PROVIDERS: ADMIT Internal Medicine; ATTEND Internal Medicine
DX: R07.89 Other chest pain (principal); I25.10 Atherosclerotic heart disease of native coronary artery without angina pectoris; R00.1 Bradycardia, unspecified; E78.5 Hyperlipidemia, unspecified; Z95.1 Presence of aortocoronary bypass graft; I10 Essential (primary) hypertension; I51.7 Cardiomegaly; Z85.46 Personal history of malignant neoplasm of prostate; Z95.5 Presence of coronary angioplasty implant and graft; Z91.81 History of falling
CPT/HCPCS: 36415; 71010; 80048; 80053; 80061; 82553; 83735; 83880; 84484; 85025; 93005; 93306; 93880; 96361; 96374; 96375; J1650; J2405; J3010; 99285-25; J7030

== ENCOUNTER 2019-03-18 13:18 | Inpatient (IN) | payer MEDICARE ==
[~2019-03-18] VITALS: Ht 177.8 cm; Wt 70.5 kg
[~2019-03-18 13:18] MED LIST changes: +NAPR-514 PO; -NAPR500T4 PO; +OMEGA-3 FATTY ACIDS/FISH OIL 1,000 MG CAPSULE. PO SCH
[2019-03-18 19:10] VITALS: BP 138/81
[2019-03-18] MEDS ORDERED: GARL10002 PO (19:26)
[2019-03-18] MEDS ORDERED: CLOP75TA57 PO (19:26)
[2019-03-18] MEDS ORDERED: FERR325T14 PO (19:26)
[2019-03-18] MEDS ORDERED: METO25TA4 PO (19:26)
[2019-03-18] MEDS ORDERED: FISH1CAP PO (19:26)
[2019-03-18] MEDS ORDERED: ASPI325T8 PO (19:26)
[2019-03-18] MEDS ORDERED: CYAN10005 SL (19:26)
[2019-03-18 19:43] VITALS: BP 138/81
[2019-03-18] MEDS ORDERED: NON FORMULARY ITEM (Garlic 1,000 MG) PO SCH (21:00)
[2019-03-18] MEDS: OMEGA-3 FATTY ACIDS/FISH OIL 1,000 MG CAPSULE. PO SCH (21:39)
[2019-03-18] MEDS: ACETAMINOPHEN 325 MG TABLET PO PRN (21:39)
[2019-03-18] MEDS: METOPROLOL TART IMMED RELEASE 25 MG TABLET PO SCH (21:40)
[2019-03-19 06:12] VITALS: BP 159/69
[2019-03-19 07:59] VITALS: BP 126/68
[2019-03-19] MEDS: ASPIRIN 325 MG TABLET PO SCH (09:14)
[2019-03-19] MEDS: FERROUS SULFATE 325 MG TABLET. PO SCH (09:14)
[2019-03-19] MEDS: METOPROLOL TART IMMED RELEASE 25 MG TABLET PO SCH ×2 (09:15→20:30)
[2019-03-19] MEDS: ACETAMINOPHEN 325 MG TABLET PO PRN (09:16)
[2019-03-19] MEDS: CLOPIDOGREL BISULFATE 75 MG TABLET PO SCH (09:16)
[2019-03-19] MEDS: MULTIVITAMIN with MINERAL TABLET. PO SCH (09:16)
[2019-03-19] MEDS: CYANOCOBALAMIN (VITAMIN B-12) 1,000 MCG TABLET. PO SCH (09:16)
[2019-03-19] MEDS: LISINOPRIL 20 MG TABLET PO SCH (09:18)
[2019-03-19] MEDS: OMEGA-3 FATTY ACIDS/FISH OIL 1,000 MG CAPSULE. PO SCH ×3 (09:20→20:29)
[2019-03-19] MEDS: HYDROcodone/APAP 5/325MG 1 TAB TABLET PO PRN ×2 (14:02→20:30)
--- NOTE | 2019-03-19 14:23 | HP ---
ADMIT DATE: 03/19/2019 HISTORY OF PRESENT ILLNESS: The patient an 78-year-old male patient, who was admitted on 03/13/2019 to [facility] with chest pain and apparently he underwent percutaneous coronary intervention with stent deployment on 03/13/2019. He was seen in consultation by vascular surgeon and the patient has carotid artery stenosis and MRI showed some small embolic type infarct in the right mid frontal and medial occipital area; however, his carotid Doppler showed bilateral mild to moderate carotid artery stenosis. The patient himself denied any visual symptoms, any varices, weakness, or dysphagia and did not require any intervention by the vascular surgeon. He was seen in consultation by the urologist as the patient has urine retention, as he became very confused after he underwent cardiac catheterization, and apparently has had a stroke. He has also been unable to void, requiring straight catheterization and he required indwelling Hardy catheter as well as, has retained more than 600 mL of urine. He was seen also in consultation by the neurologist and his MRI showed that he has tiny foci of acute early subacute ischemia noted in the right medial occipital lobe, left precentral gyrus and right middle frontal gyrus. The patient reflects embolic phenomena. No associated hemorrhage or mass effect and as the patient stabilized, the patient was transferred to [facility] bed in to continue the process of rehabilitation. When I saw him this afternoon, the patient is still complaining of severe pain in his left side of the chest that is fairly localized. He is fixated on the decision by Dr. Gutierrez not to catheterize him about 2 months ago and he stated that he continued to complain of the same type of chest pain today on the same way that on the day he was admitted to [facility], although he denied any shortness of breath. Denied any orthopnea or paroxysmal nocturnal dyspnea. Denied any worsening of the pain when taking a deep breath or coughing. His pain is fairly localized and most likely musculoskeletal. PAST MEDICAL HISTORY: Significant for coronary artery disease, hypertension, and hyperlipidemia. He has generalized osteoarthritis and prostate cancer. PAST SURGICAL HISTORY: Significant for hernia repair and coronary artery bypass graft surgery as well as PCI with stent deployment. FAMILY HISTORY: Noncontributory. SOCIAL HISTORY: He apparently lives with his . He does not smoke, drink alcohol or use any recreational drugs. ALLERGIES: He has no known drug allergies. MEDICATIONS: He is currently on following medications: He is on ferrous sulfate 325 mg once a day, Plavix 75 mg once a day, pravastatin sodium 80 mg daily, metoprolol tartrate 12.5 mg twice a day, lisinopril 40 mg once a day, aspirin 325 mg once a day, cyanocobalamin 1000 mcg sublingually daily. He is on fish oil 1 capsule 3 times a day, multivitamin 1 tablet once a day and garlic 1000 mg twice a day. REVIEW OF SYSTEMS: As per history of present illness. PHYSICAL EXAMINATION GENERAL: When I saw him this afternoon, he was resting slightly propped up in bed, in no apparent respiratory distress. He was pale, but no jaundice, cyanosis, or thyromegaly. No jugular venous distension. No limb edema. VITAL SIGNS: His heart rate was 80, blood pressure 126/68, temperature was 97.7, respiratory rate was 18 and oxygen saturation was 96% on room air. HEAD, EYES, EARS, NOSE, AND THROAT: Showed normocephalic, atraumatic. NECK: Supple. HEART: Showed normal first and second heart sounds with no gallop, rub or murmur. CHEST: Clear to auscultation. No crepitation or rhonchi. ABDOMEN: Distended, soft, nontender. No guarding or rigidity. No organomegaly. All hernial orifices intact. Bowel sounds normal. NEUROLOGIC: He is awake, alert, responding appropriately. All cranial nerves intact. EXTREMITIES: He moves extremities without difficulty, ambulates without assistance or assistive devices. LABORATORY DATA: His most recent lab work showed that his white cell count was 8400, hemoglobin 11, hematocrit 32, MCV 89 and platelet count of 89,000. His chemistry showed serum sodium was 137, potassium 3.8, chloride 103, bicarbonate 22, anion gap of 12, BUN 30, creatinine 1.3, estimated GFR was 53 mL per minute. His glucose was 108, calcium was 8.5. Total bilirubin is 1.1. AST, ALT, alkaline phosphatase were normal. Total protein was 6.4, albumin was 2.6. His TSH was normal at 3.385 and vitamin B12 was 741 pg/mL. His serum triglycerides 45, total cholesterol 136, VLDL cholesterol was 83, VLDL was 9, HDL cholesterol was 44 and ratio was 3.1. His prothrombin time was 13.3 and INR of 1. ASSESSMENT AND PLAN: In summary, this is an 78-year-old male patient who was admitted initially with chest pain for which he underwent PCI with stent deployment to the right coronary artery. He apparently suffered an acute small embolic infarct in the right middle frontal and medial occipital lobe and left paracentral gyrus. The patient is known to have bilateral carotid artery stenosis about 50-69%. The vascular surgeon has seen him, but no surgical intervention was recommended. The patient has had also an episode of acute retention, requiring indwelling Hardy catheter that has resolved. The patient is here now at [facility] bed in to continue the process of rehabilitation. The patient continued to complain of severe pain in his left-sided chest for which I probably start him on hydrocodone 5/325 one every 6 hours. Meanwhile, we will continue with physical and occupational therapy. I will order some lab works as a baseline and would continue with all his medications. KAREN JORGENSEN MD DR: ELI/ute JOB#: [id number] / [id number]
[2019-03-19 18:07] VITALS: BP 150/68
[2019-03-19] MEDS: ATORVASTATIN CALCIUM 20 MG TABLET PO SCH (20:29)
[2019-03-20 05:33] VITALS: BP 145/53
[2019-03-20 06:43] LABS: ALBUMIN 2.7 g/dL (3.4-5.0); ALBUMIN/GLOBULIN RATIO 0.7 (1.0-1.7); CALCIUM 9.1 mg/dL (8.5-10.1); CREATININE 1.1 mg/dL (0.7-1.3); GFR 64.4; POTASSIUM 3.8 mmol/L (3.5-5.1); TOTAL BILIRUBIN 0.6 mg/dL (0.2-1.0); TOTAL PROTEIN 6.7 g/dL (6.4-8.2)
[2019-03-20 06:44] LABS: HEMATOCRIT 33.6 % (39.0-53.0); HEMOGLOBIN 11.1 g/dL (13.0-17.5); RED BLOOD COUNT 3.75 x10^6/uL (4.30-5.70); RED CELL DISTRIBUTION WIDTH 13.8 % (11.5-14.5); WHITE BLOOD COUNT 4.1 x10^3/uL (4.0-11.0)
[2019-03-20] MEDS: HYDROcodone/APAP 5/325MG 1 TAB TABLET PO PRN ×2 (08:55→16:28)
[2019-03-20] MEDS: METOPROLOL TART IMMED RELEASE 25 MG TABLET PO SCH ×2 (08:56→20:29)
[2019-03-20] MEDS: LISINOPRIL 20 MG TABLET PO SCH (08:56)
[2019-03-20] MEDS: FERROUS SULFATE 325 MG TABLET. PO SCH (08:56)
[2019-03-20] MEDS: ASPIRIN 325 MG TABLET PO SCH (08:56)
[2019-03-20] MEDS: MULTIVITAMIN with MINERAL TABLET. PO SCH (08:57)
[2019-03-20] MEDS: OMEGA-3 FATTY ACIDS/FISH OIL 1,000 MG CAPSULE. PO SCH ×3 (08:57→20:28)
[2019-03-20] MEDS: CYANOCOBALAMIN (VITAMIN B-12) 1,000 MCG TABLET. PO SCH (08:57)
[2019-03-20] MEDS: CLOPIDOGREL BISULFATE 75 MG TABLET PO SCH (08:57)
[2019-03-20 17:51] VITALS: BP 146/68
[2019-03-20] MEDS: ATORVASTATIN CALCIUM 20 MG TABLET PO SCH (20:28)
[2019-03-20] MEDS: valACYclovir 500 MG TABLET. PO SCH (20:29)
--- NOTE | 2019-03-21 02:53 | PN ---
DATE: 03/20/2019 SUBJECTIVE: I was asked to see the patient today as he has a skin rash involving the outer aspect of his left arm and forearm extending all the way to the left hand including his left thumb and thenar eminence. The skin rash looks multiple blisters that is painful according to the patient and clinically seemed to be consistent with shingles in the left C6 dermatome. The patient continued to have left-sided chest pain that is probably musculoskeletal as it is reproducible and pain in his left shoulder. Otherwise, the patient denied any other complaint. PHYSICAL EXAMINATION: GENERAL: When I examined him, he looked well and was clearly in no apparent respiratory distress. No pallor, jaundice, cyanosis or thyromegaly and some limb edema. VITAL SIGNS: His heart rate was 63, blood pressure 145/53, temperature was 98, respiratory rate was 16, and oxygen saturation was 94% on room air. HEAD, EYES, EARS, NOSE AND THROAT: Showed normocephalic, atraumatic. NECK: Supple. CARDIAC: Normal first and second heart sounds with no gallop, rub or murmur. CHEST: Clear to auscultation. No crepitation or rhonchi. ABDOMEN: Scaphoid, soft, and nontender. NEUROLOGIC: He was awake, alert, responding appropriately. All cranial nerves intact. He moves extremities without difficulty. SKIN: Examination of the skin shows blistering disease involving the left arm, forearm all the way to the left thumb and thenar eminence consistent with shingles involving left C6 dermatome. PLAN: The patient was started on Valtrex 1000 mg 3 times a day for 7 days. KAREN JORGENSEN MD DR: ELI/ute JOB#: [id number] / [id number]
[2019-03-21 05:54] VITALS: BP 155/77
[2019-03-21] MEDS: HYDROcodone/APAP 5/325MG 1 TAB TABLET PO PRN (05:57)
[2019-03-21] MEDS: MULTIVITAMIN with MINERAL TABLET. PO SCH (08:18)
[2019-03-21] MEDS: FERROUS SULFATE 325 MG TABLET. PO SCH (08:18)
[2019-03-21] MEDS: CLOPIDOGREL BISULFATE 75 MG TABLET PO SCH (08:20)
[2019-03-21] MEDS: METOPROLOL TART IMMED RELEASE 25 MG TABLET PO SCH ×2 (08:20→20:34)
[2019-03-21] MEDS: OMEGA-3 FATTY ACIDS/FISH OIL 1,000 MG CAPSULE. PO SCH ×3 (08:20→20:34)
[2019-03-21] MEDS: ASPIRIN 325 MG TABLET PO SCH (08:20)
[2019-03-21] MEDS: LISINOPRIL 20 MG TABLET PO SCH (08:20)
[2019-03-21] MEDS: CYANOCOBALAMIN (VITAMIN B-12) 1,000 MCG TABLET. PO SCH (08:21)
[2019-03-21] MEDS: valACYclovir 500 MG TABLET. PO SCH ×3 (08:23→20:34)
[2019-03-21 18:14] VITALS: BP 138/66
[2019-03-21] MEDS: ATORVASTATIN CALCIUM 20 MG TABLET PO SCH (20:29)
[2019-03-21 21:55] VITALS: BP 131/71
[2019-03-22 05:45] VITALS: BP 140/66
[2019-03-22] MEDS: OMEGA-3 FATTY ACIDS/FISH OIL 1,000 MG CAPSULE. PO SCH (07:53)
[2019-03-22] MEDS: FERROUS SULFATE 325 MG TABLET. PO SCH (07:53)
[2019-03-22] MEDS: CLOPIDOGREL BISULFATE 75 MG TABLET PO SCH (07:53)
[2019-03-22 07:54] VITALS: BP 140/66
[2019-03-22] MEDS: MULTIVITAMIN with MINERAL TABLET. PO SCH (07:54)
[2019-03-22] MEDS: CYANOCOBALAMIN (VITAMIN B-12) 1,000 MCG TABLET. PO SCH (07:54)
[2019-03-22] MEDS: METOPROLOL TART IMMED RELEASE 25 MG TABLET PO SCH (07:54)
[2019-03-22] MEDS: LISINOPRIL 20 MG TABLET PO SCH (07:54)
[2019-03-22] MEDS: valACYclovir 500 MG TABLET. PO SCH (07:55)
[2019-03-22] MEDS: ASPIRIN 325 MG TABLET PO SCH (07:55)
[2019-03-22] MEDS ORDERED: VALA500T PO (08:52)
--- NOTE | 2019-03-22 11:55 | DS ---
DATE OF DISCHARGE: 03/22/2019 ATTENDING PHYSICIAN: Dr. Galvan. FINAL DISCHARGE DIAGNOSES: 1. Musculoskeletal chest wall pain, improving. 2. Recent embolic stroke, very small embolic infarct in the right middle lobe and medial occipital lobe. 3. Known coronary artery disease with recent PCI. 4. Hyperlipidemia. 5. Shingles, left hand and arm dermatome. HISTORY OF PRESENT ILLNESS: This is a very pleasant 78-year-old gentleman recently hospitalized at [facility] with chest pain. He did undergo percutaneous coronary intervention with stent deployment on 03/13/2019. He was seen by the vascular surgeon. Carotid stenosis was not stenotic enough to warrant surgery. He was seen in consultation by the neurologist. MRI showed tiny foci of infarct. No associated hemorrhage, transferred to swing bed here for possible rehabilitation. He was continued on his Plavix. There is no underlying atrial fibrillation. PAST MEDICAL HISTORY: Also significant for hypertension, arthritis, and prostate cancer. PHYSICAL EXAMINATION: Please see the dictated note. PERTINENT LABORATORY AND X-RAY STUDIES: His hemoglobin was maintained at 11.1 g/dL with white count of 4100. Chemistry panel showed normal sodium, potassium, creatinine is 1.1 mg/dL. COURSE IN THE HOSPITAL: The patient was admitted. Rehab was started, their recommendation on the chart. He was found to have blistering lesions along the left arm dermatome. Valtrex was started. He tolerated it well. The blisters have resolved that was dissipating. Pain in the chest wall was manageable. He described as 2/10. He was up and ambulating and doing well. He was urinating adequately and tolerated his home meds. He wanted to go home. He felt to be better served at home. I felt this is reasonable. He was quite medically stable. Therefore, on the fourth hospital day, he was discharged home with 7 more days of Valtrex 1000 mg t.i.d., then stop. He will continue his Plavix 75 mg daily, Pravachol 80 mg daily, metoprolol twice a day, lisinopril 40 mg daily, aspirin 325 daily, vitamin B12, fish oil, multivitamin 1 daily, and garlic 1000 mg twice a day. 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 The patient was then discharged from our hospital in stable condition with explicit instructions and followup care. TOTAL DISCHARGE TIME SPENT: 39 minutes. AFIA HUTCHISON MD DR: MICHELE/ute JOB#: [id number] / [id number] KAREN Lutz MD
== END 2019-03-22 09:48 | disposition home or self-care (01) | DRG 313 ==
LOC: LND 18:22 → 1 SOUTH 03-21 13:08
PROVIDERS: ADMIT Internal Medicine; ATTEND Internal Medicine
DX: R07.89 Other chest pain (principal); I10 Essential (primary) hypertension; E78.5 Hyperlipidemia, unspecified; I25.10 Atherosclerotic heart disease of native coronary artery without angina pectoris; B02.9 Zoster without complications; M15.9 Polyosteoarthritis, unspecified; Z86.73 Personal history of transient ischemic attack (TIA), and cerebral infarction without residual deficits; Z95.5 Presence of coronary angioplasty implant and graft; Z95.1 Presence of aortocoronary bypass graft; Z85.46 Personal history of malignant neoplasm of prostate; Z79.899 Other long term (current) drug therapy; Z79.02 Long term (current) use of antithrombotics/antiplatelets
CPT/HCPCS: 36415; 80053; 85027; 97110; 97112; 97116; 97530; 97535

== ENCOUNTER 2019-04-27 17:32 | Emergency (ER) | payer MEDICARE ==
[~2019-04-27] VITALS: Ht 177.8 cm; Wt 76.4 kg
[~2019-04-27 17:32] MED LIST changes: +ASPI325T8 PO; +CLOP75TA57 PO; +CYAN-25 SL; +FERR325T14 PO; +FISH1CAP PO; +GARL10002 PO; +METO25TA4 PO; -OMEGA-3 FATTY ACIDS/FISH OIL 1,000 MG CAPSULE. PO SCH; +VALA500T PO
--- NOTE | 2019-04-27 17:54 | PHYS DOC ---
Past History Past Medical History: CAD, Hypertension, Other Additional Past Medical Histor: shingles (NANCY FRENCH DO) Past Surgical History: Coronary Bypass Surgery, Other (NANCY FRENCH DO) Alcohol Use: None Drug Use: None (NANCY FRENCH DO) Adult General Chief Complaint Chief Complaint: SYNCOPE HPI HPI Patient is a 78-year-old male presents by EMS after a syncopal episode. Patient also had a syncopal episode 2 days ago. He was able to get up and go about his daily life after that one. Today he was too weak to get up. Generalized weakness. No focality to the weakness. No head injury. No headache. No change in vision or nausea. Patient is denying any chest pain or palpitations. Nothing seems to make the symptoms worse other than some sitting up. Feels better with laying down. There is no vertigo component to this. He has a recent history of a cardiac catheter and stent placement March 13, 2019 at [facility].[] (NANCY FRENCH DO) Review of Systems Review of Systems Constitutional: Denies fever or chills [] Eyes: Denies change in visual acuity, redness, or eye pain [] HENT: Denies nasal congestion or sore throat [] Respiratory: Denies cough or shortness of breath [] Cardiovascular: No additional information not addressed in HPI [] GI: Denies abdominal pain, nausea, vomiting, bloody stools or diarrhea [] : Denies dysuria or hematuria [] Musculoskeletal: Denies back pain or joint pain [] Integument: Denies rash or skin lesions [] Neurologic: Denies headache, focal weakness or sensory changes [] Endocrine: Denies polyuria or polydipsia [] All other systems were reviewed and found to be within normal limits, except as documented in this note. (NANCY FRENCH DO) Allergies Allergies Allergies Coded Allergies Type Severity Reaction Last Updated Verified No Known Drug Allergies 12/15/15 No (NANCY FRENCH DO) Physical Exam Physical Exam Constitutional: Well developed, well nourished, no acute distress, non-toxic appearance. [] HENT: Normocephalic, atraumatic, bilateral external ears normal, oropharynx moist, no oral exudates, nose normal. [] Eyes: PERRLA, EOMI, conjunctiva normal, no discharge. [] Neck: Normal range of motion, no tenderness, supple, no stridor. [] Cardiovascular:Heart rate regular rhythm, no murmur [] Lungs & Thorax: Bilateral breath sounds clear to auscultation [] Abdomen: Bowel sounds normal, soft, no tenderness, no masses, no pulsatile masses. [] Skin: Warm, dry, no erythema, no rash. [] Back: No tenderness, no CVA tenderness. [] Extremities: No tenderness, no cyanosis, no clubbing, ROM intact, no edema. [] Neurologic: Alert and oriented X 3, normal motor function, normal sensory function, no focal deficits noted. [] Psychologic: Affect normal, judgement normal, mood normal. [] (NANCY FRENCH DO) Current Patient Data Vital Signs Vital Signs Date Time Temp Pulse Resp B/P (MAP) Pulse Ox O2 Delivery O2 Flow Rate FiO2 04/27/19 17:32 98.2 67 15 94 Room Air (NANCY FRENCH DO) EKG EKG EKG shows a sinus rhythm at 67 bpm, leftward axis, QTC of 402 ms, no ST elevations. Interpreted by me at 1750. No acute changes from 07/24/2017[] (NANCY FRENCH DO) Radiology/Procedures Radiology/Procedures [] (NANCY FRENCH DO) Impressions: EXAM: AP View of the chest DATE: 04/27/2019 5:32 PM INDICATION: Syncope COMPARISON: 12/15/2015 FINDINGS/ IMPRESSION: Heart is mildly enlarged. Atherosclerotic calcifications of the tortuous aorta are seen. Postsurgical changes are seen including left hilar clips and mediastinal wires. Mediastinal and hilar contours are stable. Patchy bibasilar airspace opacities likely atelectasis or developing consolidation. Small left pleural effusion. No pneumothorax. Electronically signed by: Boo Ambrocio MD (04/27/2019 6:33 PM) [facility] DICTATED AND SIGNED BY: BOO AMBROCIO MD DATE: 04/27/19 183 CC: SHUN KENNEDY DO; NANCY FRENCH DO; ASHLEY CASTRO DO ~ (SHUN KENNEDY DO) Course & Med Decision Making Course & Med Decision Making Pertinent Labs and Imaging studies reviewed. (See chart for details) ED course: Patient arrived, was placed in bed, in tolerated exam well. Patient care was endorsed to the nighttime physician at 1800 with laboratory and imaging testing pending.[] (NANCY FRENCH DO) Course & Med Decision Making The patient's labs show a low magnesium of 1.5. We will give him 2 g replacement by IV. The patient's chest x-ray shows possible pneumonia. Given the patient was recently admitted to the hospital, we will treat this as healthcare acquired. I'll start him on vancomycin and Zosyn. I discussed the patient with cardiology, Dr. Gutierrez and he would prefer the patient be transferred to [facility] for admission and further management. I spoke with the hospitalist, Dr. Galvan and he is in agreement with the transfer and he will acc ept the patient for admission. The patient will go by ambulance. (SHUN KENNEDY DO) Dragon Disclaimer Dragon Disclaimer This electronic medical record was generated, in whole or in part, using a voice recognition dictation system. (NANCY FRENCH DO) Departure Departure: Impression: Primary Impression: Syncope Additional Impressions: Shingles Hypomagnesemia Healthcare-associated pneumonia Disposition: [facility] Admitting Physician: Claudia Galvan (SHUN KENNEDY DO) Condition: STABLE Referrals: ASHLEY CASTRO DO (PCP) Problem Qualifiers Primary Impression: Syncope Syncope type: unspecified Qualified Codes: R55 - Syncope and collapse Additional Impressions: Shingles Herpes zoster complications: unspecified herpes zoster complication Qualified Codes: B02.8 - Zoster with other complications NANCY FRENCH DO Apr 27, 2019 17:54 SHUN KENNEDY DO Apr 27, 2019 18:43
[2019-04-27] MEDS ORDERED: ASPIRIN 81 MG TAB.CHEW PO ONE (18:00)
[2019-04-27] MEDS ORDERED: IV NORMAL SALINE 500ML 500 ML IV SCH (18:00)
[2019-04-27 18:31] LABS: BASO % 0 % (0-3); EOS # 0.2 x10^3/uL (0.0-0.7); EOS % 3 % (0-3); HEMATOCRIT 29.6 % (39.0-53.0); HEMOGLOBIN 10.2 g/dL (13.0-17.5); LYMPH # 0.6 x10^3/uL (1.0-4.8); LYMPH % 11 % (24-48); MEAN CORPUSCULAR HEMOGLOBIN 31 pg (25-35); MEAN CORPUSCULAR HGB CONC 34 g/dL (31-37); MEAN CORPUSCULAR VOLUME 92 fL (79-100); MONO # 0.6 x10^3/uL (0.0-1.1); MONO % 10 % (0-9); NEUT # 4.5 x10^3uL (1.8-7.7); NEUT % 77 % (31-73); PLATELET COUNT 121 x10^3/uL (140-400); RED BLOOD COUNT 3.24 x10^6/uL (4.30-5.70); WHITE BLOOD COUNT 5.9 x10^3/uL (4.0-11.0)
--- NOTE | 2019-04-27 18:36 | RAD ---
EXAM: AP View of the chest DATE: 04/27/2019 5:32 PM INDICATION: Syncope COMPARISON: 12/15/2015 FINDINGS/ IMPRESSION: Heart is mildly enlarged. Atherosclerotic calcifications of the tortuous aorta are seen. Postsurgical changes are seen including left hilar clips and mediastinal wires. Mediastinal and hilar contours are stable. Patchy bibasilar airspace opacities likely atelectasis or developing consolidation. Small left pleural effusion. No pneumothorax. Electronically signed by: Boo Cruz MD (04/27/2019 6:33 PM) [facility]
[2019-04-27 18:55] LABS: ALBUMIN 2.9 g/dL (3.4-5.0); ALBUMIN/GLOBULIN RATIO 0.8 (1.0-1.7); CALCIUM 8.5 mg/dL (8.5-10.1); CREATININE 1.4 mg/dL (0.7-1.3); GFR 48.8; MAGNESIUM 1.5 mg/dL (1.8-2.4); POTASSIUM 4.3 mmol/L (3.5-5.1); TOTAL BILIRUBIN 0.6 mg/dL (0.2-1.0); TOTAL PROTEIN 6.4 g/dL (6.4-8.2)
[2019-04-27] MEDS ORDERED: PIPERACILLIN/TAZOBACTAM 3.375 GM in IV NORMAL SALINE 50ML 50 ML IV ONE (19:30)
[2019-04-27] MEDS ORDERED: IV NORMAL SALINE 500ML 500 ML IV ONE (19:30)
[2019-04-27] MEDS ORDERED: MAGNESIUM SULFATE 2GM 50 ML IV ONE (19:45)
[2019-04-27] MEDS ORDERED: PIPERACILLIN/TAZOBACTAM 3.375 GM VIAL IV ONE (19:59)
[2019-04-27] MEDS ORDERED: IV NORMAL SALINE 50ML 50 ML ONE (19:59)
[2019-04-27] MEDS ORDERED: VANCOMYCIN 1.5 GM in IV NORMAL SALINE 500ML 500 ML IV ONE (20:00)
[2019-04-27 20:31] LABS: BACTERIA,URINE 0 /HPF (0-FEW); BILIRUBIN,URINE NEG (NEG); CLARITY,URINE CLEAR; COLOR,URINE YELLOW; GLUCOSE,URINE NEG (NEG); NITRITE,URINE NEG (NEG); RBC,URINE 0 /HPF (0-2); SQUAMOUS EPITHELIAL CELL,UR OCC /LPF; UROBILINOGEN,URINE 0.2 mg/dL (0.2 mg/dL); WBC,URINE OCC /HPF (0-4)
[2019-04-27] MEDS ORDERED: VANCOMYCIN 1 GM VIAL. ONE ×2 (20:38)
[2019-04-27] MEDS ORDERED: IV NORMAL SALINE 500ML 500 ML ONE (20:38)
[2019-04-27 21:35] VITALS: BP 121/49
== END 2019-04-27 22:02 | disposition short-term general hospital (02) ==
LOC: ER 17:42
DX: R55 Syncope and collapse (principal); B02.8 Zoster with other complications; E83.42 Hypomagnesemia; J18.9 Pneumonia, unspecified organism; I25.810 Atherosclerosis of coronary artery bypass graft(s) without angina pectoris; I10 Essential (primary) hypertension
CPT/HCPCS: 36415; 71045; 80053; 81001; 83735; 83880; 84484; 85025; 93005; 96361; 96365; 96368; 99285; J2543; J3370; J3475; J7040

== ENCOUNTER 2019-09-18 10:30 | Emergency (ER) | payer MEDICARE ==
[~2019-09-18] VITALS: Ht 177.8 cm; Wt 78.0 kg
[2019-09-18] MEDS ORDERED: IV NORMAL SALINE 1,000ML 1,000 ML IV ONE (10:45)
[2019-09-18] MEDS ORDERED: ONDANSETRON PF 4 MG/2 ML VIAL. IVP ONE (10:45)
--- NOTE | 2019-09-18 10:45 | PHYS DOC ---
Past History Past Medical History: CAD, Hypertension, Other Additional Past Medical Histor: shingles Past Surgical History: Coronary Bypass Surgery, Other Alcohol Use: None Drug Use: None NIH Stroke Scale: NIH Stroke Scale Response (Comments) Value Level of Consciousness: 0 Alert/Responsive 0 LOC Questions: 2 Answers neither correct 2 LOC Commands: 0 Performs both tasks 0 Best Gaze: 0 Normal 0 Visual: 0 No visual loss 0 Facial Palsy: 0 Normal, symmetrical 0 Motor - Left Arm 1 Drifts, but can hold 1 Motor - Right Arm 1 Drifts but can hold 1 Motor - Left Leg 1 Drift but can hold 1 Motor: Right Leg 1 Drift but can hold 1 Limb Ataxia: 2 Two limbs 2 Sensory: 0 No loss 0 Best Language: 2 Severe aphasia 2 Dysathria: 2 Severe 2 Extinction and Inattention: 0 Normal 0 Total 12 Adult General Chief Complaint Chief Complaint: ALTERED MENTAL STATUS HPI HPI 79-year-old male presents via EMS as a code stroke. The entire history comes from EMS. The patient was last known well at 9:15 AM. Family states that he was talking normally prior to this time and then they noticed he was having difficulty speaking and he asked that they call 911. When EMS arrived, the patient has not been able to verbally answer any of their questions. He is able to say yes, but they've not been able to understand anything else. The patient was moving all his extremities in route. He was recently diagnosed with UTI placed on antibiotics. We do not know which antibiotic this time. Review of Systems Review of Systems AMS: unable to answer questions Current Medications Current Medications Current Medications Medications (Trade) Dose Ordered Sig/Pedro Start Time Stop Time Status Last Admin Dose Admin Ondansetron HCl (Zofran) 4 mg 1X ONCE 09/18/19 10:45 09/18/19 10:46 Sodium Chloride 1,000 ml @ 1,000 mls/hr 1X ONCE 09/18/19 10:45 09/18/19 11:44 Allergies Allergies Allergies Coded Allergies Type Severity Reaction Last Updated Verified No Known Drug Allergies 12/15/15 No Physical Exam Physical Exam Constitutional: Well developed, well nourished, moderate acute distress, non- toxic appearance. [] HENT: Normocephalic, atraumatic, bilateral external ears normal, oropharynx dry, no oral exudates, nose normal. [] Eyes: PERRLA, EOMI, conjunctiva normal, no discharge. [] Neck: Normal range of motion, no tenderness, supple, no stridor. [] Cardiovascular: Heart rate regular rhythm, no murmur [] Lungs & Thorax: Bilateral breath sounds clear to auscultation [] Abdomen: vomiting. Bowel sounds normal, soft, no tenderness, no masses, no pulsatile masses. [] Skin: Warm, dry, no erythema, no rash. [] Back: No tenderness, no CVA tenderness. [] Extremities: No tenderness, no cyanosis, no clubbing, ROM intact, no edema. [] Neurologic: see NIHSS [] Psychologic: Unable to assess. [] EKG EKG Sinus rhythm, rate 70, upper axis, no ST elevations or depressions.[] Radiology/Procedures Radiology/Procedures [] Impressions: CT CODE STROKE HEAD WO History: Slurred speech Comparison: December 15, 2015. Technique: Noncontrast CT imaging was performed of the head. Exposure: One or more of the following individualized dose reduction techniques were utilized for this examination: 1. Automated exposure control 2. Adjustment of the mA and/or kV according to patient size 3. Use of iterative reconstruction technique. Findings: There is some motion degradation. No acute intracranial hemorrhage is identified. There is multifocal at least moderate ill-defined low-density of the supratentorial parenchyma bilaterally. Ventricular size is proportionate to the sulcal spaces, again mild supratentorial atrophy. There is no new intra-axial mass effect or midline shift. There is prominent is chronic calcification bilateral carotid siphons, to lesser degree on the right intradural vertebral artery. There is similar small old right cerebellar lacunar infarct. Mastoid air cells are aerated. There has been lens surgery bilaterally. There is likely minimal maxillary sinus mucosal thickening not fully evaluated. Impression: 1. No acute intracranial hemorrhage is identified. There is again generalized supratentorial atrophy. There is again multifocal low-density of the supratentorial parenchyma bilaterally likely due to chronic microvascular ischemic disease. Critical results were discussed with Dr. Kennedy in the emergency department at 09/18/2019 10:47 AM. Electronically signed by: Rosa Maria Moeller MD (09/18/2019 10:49 AM) [facility] DICTATED AND SIGNED BY: ROSA MARIA MOELLER MD DATE: 09/18/19 1049 CC: SHUN KENNEDY DO; ASHLEY CASTRO DO ~ CTA head and neck History: Stroke Technique: After bolus of intravenous contrast, volumetric CT data acquisition was acquired of the head and neck. Multiplanar reconstruction images to include MIP and 3-D reconstruction images are submitted. Exposure: One or more of the following individualized dose reduction techniques were utilized for this examination: 1. Automated exposure control 2. Adjustment of the mA and/or kV according to patient size 3. Use of iterative reconstruction technique. Comparison: Head CT the same day Any determination of stenosis is based on NASCET criteria. CTA head: Findings: There is severe motion degradation and the contrast bolus in the arteries is also very poor. There is prominent calcified plaque of the carotid siphons bilaterally, likely significant diameter reduction of the right cavernous and ophthalmic internal carotid arteries with greater than 75% luminal diameter reduction. There is also likely significant stenosis of the left ophthalmic internal carotid artery, probable greater than 75% luminal diameter reduction. However accurate characterization is very limited due to the extensive calcified plaque as well as poor contrast opacification of the arteries during exam. Vertebral arteries are visualized although also not accurately characterized, dominant left vertebral artery. There is some calcified plaque of the right proximal intradural vertebral artery with likely significant stenosis greater than 75% luminal diameter reduction. Exam does not accurately evaluate for large vessel occlusive filling defect, degree of visualization of the middle cerebral arteries bilaterally. Left A1 and A2 segments are not well-visualized on this exam, uncertain if there is azygos morphology. There is some degree of visualization of the middle and posterior cerebral arteries bilaterally although difficult to accurately characterize for stenosis or filling defect. Impression: 1. Exam is very limited as stated, cannot accurately evaluate for large vessel occlusive filling defect. Calcified plaque results in narrowing of the carotid siphons bilaterally, likely more significant stenoses of the right cavernous and ophthalmic internal carotid artery and left ophthalmic internal carotid artery. Left A1 and A2 segments are not visualized on this exam. Calcified plaque results in stenosis of the proximal right intradural vertebral artery which is smaller in caliber than the left. Neck CTA: Findings: There is severe motion degradation. Contrast bolus in the cervical vasculature is nondiagnostic, cannot accurately evaluate for dissection flap or stenosis. There is greater degree of calcified plaque of the distal right common carotid artery carotid bulb extending to proximal right internal carotid artery. There is also some calcified plaque of the left carotid bulb. There is azygos fissure. Impression: 1. There is significant motion degradation and the contrast bolus in the cervical vasculature is nondiagnostic, cannot accurately evaluate for stenosis or dissection flap. There is calcified plaque of the bilateral carotid bulbs. Results were discussed with SHUN KENNEDY at 09/18/2019 1:33 PM. Complete Electronically signed by: Rosa Maria Moeller MD (09/18/2019 1:37 PM) [facility] Course & Med Decision Making Course & Med Decision Making Pertinent Labs and Imaging studies reviewed. (See chart for details) Arrival the patient had some retching and attempted to vomit. We were able to do the CT scan. Afterward, he appears to be very uncomfortable, but is not really able to tell us where the pain is. When he does speak his words are clear, but he does not give us much insight. His son arrived and confirmed the EMS history. He attempted to talk to the patient and the patient did say yes that he was in pain and said the word "head". He continues to look very uncomfortable. The patient had a kidney infection about a year ago and has had a very similar mental state at that time according to the patient's son. The patient is not on an anticoagulant. He does take a baby aspirin every day. His head CT without contrast is negative for hemorrhage. The patient's labs show a blood gas of 2.3. 30 mL/kg of fluid has been ordered. His white count is normal. He does not have a fever. The patient does not seem to be septic. I still believe this is more of a stroke situation. I spoke with the stroke neurologist at Dr. Israel and he agreed the patient could benefit from tPA as he is within the window. He also has recommended that we do a CT angiogram in spite of the patient's creatinine of 1.5. I have discussed this with the family and they are in agreement with tPA. He does not need any absolute contraindications. We will g colt the patient tPA. A CT angiogram was performed after the TPA was given. It was nondiagnostic due to patient movement. See official read for more details. I contacted second time and Dr. Israel septa the patient for transfer. The family was in agreement with this plan. The patient went by ground ambulance. A 1 minutes of critical time was this patient exclusive of other billable procedures. [] Dragon Disclaimer Dragon Disclaimer This electronic medical record was generated, in whole or in part, using a voice recognition dictation system. Departure Departure: Impression: Primary Impression: Stroke Disposition: XFER SHT-TRM HOSP Condition: GUARDED Referrals: ASHLEY CASTRO DO (PCP) Problem Qualifiers Primary Impression: Stroke CVA mechanism: unspecified Qualified Codes: I63.9 - Cerebral infarction, unspecified SHUN KENNEDY DO Sep 18, 2019 10:45
--- NOTE | 2019-09-18 10:52 | RAD ---
CT CODE STROKE HEAD WO History: Slurred speech Comparison: December 15, 2015. Technique: Noncontrast CT imaging was performed of the head. Exposure: One or more of the following individualized dose reduction techniques were utilized for this examination: 1. Automated exposure control 2. Adjustment of the mA and/or kV according to patient size 3. Use of iterative reconstruction technique. Findings: There is some motion degradation. No acute intracranial hemorrhage is identified. There is multifocal at least moderate ill-defined low-density of the supratentorial parenchyma bilaterally. Ventricular size is proportionate to the sulcal spaces, again mild supratentorial atrophy. There is no new intra-axial mass effect or midline shift. There is prominent is chronic calcification bilateral carotid siphons, to lesser degree on the right intradural vertebral artery. There is similar small old right cerebellar lacunar infarct. Mastoid air cells are aerated. There has been lens surgery bilaterally. There is likely minimal maxillary sinus mucosal thickening not fully evaluated. Impression: 1. No acute intracranial hemorrhage is identified. There is again generalized supratentorial atrophy. There is again multifocal low-density of the supratentorial parenchyma bilaterally likely due to chronic microvascular ischemic disease. Critical results were discussed with Dr. Montanez in the emergency department at 09/18/2019 10:47 AM. Electronically signed by: Ananda Zabala MD (09/18/2019 10:49 AM) [id number]
[2019-09-18 10:59] LABS: BASO % 0 % (0-3); EOS # 0.2 x10^3/uL (0.0-0.7); EOS % 3 % (0-3); HEMATOCRIT 38.9 % (39.0-53.0); HEMOGLOBIN 12.9 g/dL (13.0-17.5); LYMPH # 1.2 x10^3/uL (1.0-4.8); LYMPH % 18 % (24-48); MEAN CORPUSCULAR HEMOGLOBIN 29 pg (25-35); MEAN CORPUSCULAR HGB CONC 33 g/dL (31-37); MEAN CORPUSCULAR VOLUME 89 fL (79-100); MONO # 0.5 x10^3/uL (0.0-1.1); MONO % 7 % (0-9); NEUT % 72 % (31-73); PLATELET COUNT 201 x10^3/uL (140-400); RED BLOOD COUNT 4.39 x10^6/uL (4.30-5.70); RED CELL DISTRIBUTION WIDTH 14.2 % (11.5-14.5)
[2019-09-18 11:10] LABS: CALCIUM 9.3 mg/dL (8.5-10.1); CREATININE 1.5 mg/dL (0.7-1.3); GFR 44.9; POTASSIUM 5.4 mmol/L (3.5-5.1)
[2019-09-18] MEDS ORDERED: MORPHINE SULFATE 2 MG/ML DISP.SYRIN. IV ONE (11:15)
[2019-09-18 11:17] LABS: ALBUMIN 3.6 g/dL (3.4-5.0); TOTAL BILIRUBIN 0.5 mg/dL (0.2-1.0); TOTAL PROTEIN 7.3 g/dL (6.4-8.2)
[2019-09-18] MEDS ORDERED: IV NORMAL SALINE 250ML 250 ML ONE (12:08)
[2019-09-18 12:15] LABS: COLOR,URINE YELLOW
[2019-09-18] MEDS ORDERED: IV NORMAL SALINE 50ML 50 ML IV ONE (12:15)
[2019-09-18] MEDS ORDERED: ALTEPLASE 0 MG IV SCH (12:15)
[2019-09-18] MEDS ORDERED: ALTEPLASE 0 MG IV ONE (12:15)
[2019-09-18] MEDS ORDERED: IV NORMAL SALINE 1,000ML 2,340 ML IV SCH (12:15)
[2019-09-18 12:16] LABS: BILIRUBIN,URINE NEG (NEG); CLARITY,URINE CLOUDY; GLUCOSE,URINE NEG (NEG); NITRITE,URINE NEG (NEG); UROBILINOGEN,URINE 0.2 mg/dL (0.2 mg/dL)
[2019-09-18 12:17] LABS: BACTERIA,URINE 0 /HPF (0-FEW); RBC,URINE 20-40 /HPF (0-2)
[2019-09-18] MEDS ORDERED: METOCLOPRAMIDE HCL 10 MG/2 ML VIAL. IVP ONE (12:30)
[2019-09-18] MEDS ORDERED: IOHEXOL 350 MG/ML 100 ML VIAL. IV ONE (12:30)
--- NOTE | 2019-09-18 13:40 | RAD ---
CTA head and neck History: Stroke Technique: After bolus of intravenous contrast, volumetric CT data acquisition was acquired of the head and neck. Multiplanar reconstruction images to include MIP and 3-D reconstruction images are submitted. Exposure: One or more of the following individualized dose reduction techniques were utilized for this examination: 1. Automated exposure control 2. Adjustment of the mA and/or kV according to patient size 3. Use of iterative reconstruction technique. Comparison: Head CT the same day Any determination of stenosis is based on NASCET criteria. CTA head: Findings: There is severe motion degradation and the contrast bolus in the arteries is also very poor. There is prominent calcified plaque of the carotid siphons bilaterally, likely significant diameter reduction of the right cavernous and ophthalmic internal carotid arteries with greater than 75% luminal diameter reduction. There is also likely significant stenosis of the left ophthalmic internal carotid artery, probable greater than 75% luminal diameter reduction. However accurate characterization is very limited due to the extensive calcified plaque as well as poor contrast opacification of the arteries during exam. Vertebral arteries are visualized although also not accurately characterized, dominant left vertebral artery. There is some calcified plaque of the right proximal intradural vertebral artery with likely significant stenosis greater than 75% luminal diameter reduction. Exam does not accurately evaluate for large vessel occlusive filling defect, degree of visualization of the middle cerebral arteries bilaterally. Left A1 and A2 segments are not well-visualized on this exam, uncertain if there is azygos morphology. There is some degree of visualization of the middle and posterior cerebral arteries bilaterally although difficult to accurately characterize for stenosis or filling defect. Impression: 1. Exam is very limited as stated, cannot accurately evaluate for large vessel occlusive filling defect. Calcified plaque results in narrowing of the carotid siphons bilaterally, likely more significant stenoses of the right cavernous and ophthalmic internal carotid artery and left ophthalmic internal carotid artery. Left A1 and A2 segments are not visualized on this exam. Calcified plaque results in stenosis of the proximal right intradural vertebral artery which is smaller in caliber than the left. Neck CTA: Findings: There is severe motion degradation. Contrast bolus in the cervical vasculature is nondiagnostic, cannot accurately evaluate for dissection flap or stenosis. There is greater degree of calcified plaque of the distal right common carotid artery carotid bulb extending to proximal right internal carotid artery. There is also some calcified plaque of the left carotid bulb. There is azygos fissure. Impression: 1. There is significant motion degradation and the contrast bolus in the cervical vasculature is nondiagnostic, cannot accurately evaluate for stenosis or dissection flap. There is calcified plaque of the bilateral carotid bulbs. Results were discussed with SHUN KENNEDY at 09/18/2019 1:33 PM. Complete Electronically signed by: Ananda Zabala MD (09/18/2019 1:37 PM) [facility]
[2019-09-18 13:52] VITALS: BP 168/97
--- NOTE | 2019-09-18 16:33 | EKG ---
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
== END 2019-09-18 14:15 | disposition home or self-care (01) ==
LOC: ER 10:30
DX: I63.9 Cerebral infarction, unspecified (principal); R41.82 Altered mental status, unspecified; I25.810 Atherosclerosis of coronary artery bypass graft(s) without angina pectoris; I10 Essential (primary) hypertension; Z87.440 Personal history of urinary (tract) infections
CPT/HCPCS: 36415; 37195; 51702; 70450; 70496; 70498; 80053; 81001; 82947; 83605; 84484; 85025; 85610; 85730; 87040; 87086; 93005; 96361; 96374; 96375; 99285; J2270; J2405; J2765; J2997; Q9967; J7030

== ENCOUNTER → 2021-12-08 | Outpatient (CLI) | payer MEDICARE ==
[~2021-12-08] MED LIST changes: -LISI40TA PO; +LISI40TA6 PO; +REGADENOSON 0.4 MG/5 ML DISP.SYRIN. IV ONE; -VALA500T PO; +VALA500T9 PO
--- NOTE | 2021-12-09 12:51 | RAD ---
MR#: [id number] Date of Study: 12/08/2021 Ordering Physician: SHIVA MADSEN, Referring Physician: ZEINAB JEAN-BAPTISTE Tech: RT Nadege (R) (N) APPROVED REPORT Test Type: Pharmacological Stress Nurse/Tech: Tania Cortez/Linwood Test Indications: chest pain Cardiac History: Multiple stents & bypass surgery Medications: See EHR Medical History: See EHR Resting Heart Rate: 69 bpm Resting Blood Pressure: 140/69mmHg Pharm. Details Pharmacologic stress testing was performed using 0.4mg per 5ml of regadenoson given intravenously ove r 7-10 seconds. There waswas no low-level exercise performed along with the infusion Stress Symptoms Dyspnea POST EXERCISE Reason for Termination: Infusion complete Max HR: 108 bpm Max Blood Pressure: 132/68mmHg Blood Pressure response to exercise: Normal blood pressure response during stress. Heart Rate response to exercise: Normal Chest Pain: No. ST Change: No. INTERPRETATION Stress EKG Conclusion: Non-diagnostic stress EKG due to pacing artifact. Imaging Protocol IMAGE PROTOCOL: Rest Tc-99m/stress Tc-99m 1 day Rest: Stress: Viability: Radiopharm.Tc99m KdyryqnyeZu25d Sestamibi [id number] 33mCi Duration 15min. 15min. Img Date 12/08/2021 12/08/2021 Inj-Img Fecu05hrg. 60min. Rest Admin Site:IV - Right HandAdministrator: RT Nadege (R)(N) Stress Admin Site: IV - Right HandAdministrator: RT Nadege (R)(N) STRESS DATA End Diast. Vol.221.0mlAv. Heart Rate65.0bpm End Syst. Vol.136.0mlCO Index BSA0.0L/min Myocardial Gisi750.0gEject. Zquyuclv81.0% Stress Rates Pk. Fill Rate1.98EDV/secLVtime Pk. Fill 160.70msec Pk. Empty Rate1.48ESV/secLVtime Pk. Cogke316.92msec 09/13 Pk. Fill1.16EDV/sec Stress Scores Regional WT2.00Summed WT22.00 Regional WM0.00Summed WM16.00 LV Perfusion There is a moderate sized basal to mid inferolateral FIXED defect suggestive of prior infarct without active ischemia. Wall Motion Moderate to severe LV dysfunction. EF 35% LV Perf. Quant 17 Seg. SSS12.00 17 Seg. SRS11.00 17 Seg. SDS2.00 Stress Defect Extent (% LAD)0.00Rest Defect Extent (% LAD)3.80Rev. Defect Extent (% LAD)0.00 Stress Defect Extent (% LCX) 95.00Rest Defect Extent (% LCX)88.80Rev. Defect Extent (% LCX)0.00 Stress Defect Extent (% RCA)0.00Rest Defect Extent (% RCA)0.00Rev. Defect Extent (% RCA)0.00 Stress Defect Extent (% SAMI)21.50Rest Defect Extent (% SAMI)20.00Rev. Defect Extent (% SAMI)0.20 Other Information Quality:Average Risk Assessment: Moderate-High Risk Conclusion 1. Non-diagnostic stress EKG due to pacing artifact 2. Fixed inferolateral defect. No active ischemia. 3. Moderate to severe global hypokinesis. EF 35% 4. Moderate to high risk for future CV events. Signed by : Sincere Haile, Electronically Approved : 12/09/2021 12:50:45
== END ==
LOC: NM 08:34
PROVIDERS: ATTEND Internal Medicine Cardiovascular Disease
DX: R07.9 Chest pain, unspecified (principal)
CPT/HCPCS: 78452; 93017; A9500; J2785